=== PATIENT | male | born 1930 | race Caucasian/White ===

== ENCOUNTER → 2016-04-29 | Outpatient (CLI) | payer MEDICARE | LOC: MW.CHFP 08:40 | PROVIDERS: ATTEND Emergency Medicine | DX: Z51.81 Encounter for therapeutic drug level monitoring (principal); Z79.01 Long term (current) use of anticoagulants | CPT/HCPCS: 36415; 85610; G0463 ==

== ENCOUNTER → 2016-05-19 | Outpatient (CLI) | payer MEDICARE | LOC: MW.CHFP 13:32 | PROVIDERS: ATTEND Emergency Medicine | DX: I10 Essential (primary) hypertension (principal); Z53.9 Procedure and treatment not carried out, unspecified reason ==

== ENCOUNTER → 2016-05-27 | Outpatient (CLI) | payer MEDICARE | LOC: MW.CHFP 15:01 | PROVIDERS: ATTEND Emergency Medicine | DX: I10 Essential (primary) hypertension (principal); E78.00 Pure hypercholesterolemia, unspecified; I48.91 Unspecified atrial fibrillation; F01.50 Vascular dementia, unspecified severity, without behavioral disturbance, psychotic disturbance, mood disturbance, and anxiety; G47.34 Idiopathic sleep related nonobstructive alveolar hypoventilation | CPT/HCPCS: 36415; 80053; 85025; G0463 ==

== ENCOUNTER 2016-07-27 20:23 | Emergency (ER) | payer MEDICARE ==
[2016-07-27] MEDS ORDERED: Albuterol/Ipratropium 3.0-0.5 MG/3 ML Neb Soln ONE (20:26)
[2016-07-27] MEDS ORDERED: Albuterol/Ipratropium 3.0-0.5 MG/3 ML Neb Soln NEB ONE (20:36)
[2016-07-27] MEDS ORDERED: methylPREDNISolone Sodium Succinate 125 MG/2 ML SDV IVPUSH ONE (20:41)
--- NOTE | 2016-07-27 22:54 | EDM.PDOC ---
ED HPI GENERAL MEDICAL PROBLEM - General Chief Complaint: Respiratory Problem Stated Complaint: SHORTNESS OF BREATH Time Seen by Provider: 07/27/16 20:35 Source of Information: Reports: Patient History Limitations: Reports: No Limitations - History of Present Illness INITIAL COMMENTS - FREE TEXT/NARRATIVE: History of present illness: [86-year-old male comes in planning of shortness of breath. Daughter and are present indicate patient prefers minimal intervention but is willing to take a breathing treatment] Review of systems: As per history of present illness and below otherwise all systems reviewed and negative. Past medical history: As per history of present illness and as reviewed below otherwise noncontributory. Surgical history: As per history of present illness and as reviewed below otherwise noncontributory. Social history: No reported history of drug or alcohol abuse. Family history: As per history of present illness and as reviewed below otherwise noncontributory. Physical exam: HEENT: Atraumatic, normocephalic, pupils reactive, negative for conjunctival pallor or scleral icterus, mucous membranes moist, throat clear, neck supple, nontender, trachea midline. Lungs: Minimal air movement noted throughout, breath sounds and apex noted to be slightly rhonchorous, chest nontender. Heart: S1S2, regular, negative for clicks, rubs, or JVD. Abdomen: Soft, nondistended, nontender. Negative for masses or hepatosplenomegaly. Negative for costovertebral tenderness. Pelvis: Stable nontender. Genitourinary: Deferred. Rectal: Deferred. Extremities: Atraumatic, negative for cords or calf pain. Neurovascular unremarkable. Neuro: Awake, alert, oriented. Cranial nerves II through XII unremarkable. Cerebellum unremarkable. Motor and sensory unremarkable throughout. Exam nonfocal. 86-year-old gentleman noted to be cachectic and within skin and exhibiting some amount of respiratory distress Breath sounds improved significantly after respiratory treatment and Solu- Medrol IV push An incidental finding was a thickening of the trachea that was present on a radiographic study in February. It is noted that the thickening and or potential mass has increased in size. This was mentioned to the patient and patient's family and they indicated that they would followup with her primary care to have this discussion about plan of care and/or any interventions that would be available to address this concern. Daughter and patient made it very clear patient had no interest in staying in the hospital and desired to go home. Diagnostics: [EC, CMP, BNP, chest x-ray] Therapeutics: [] Impression: [Sore is a breath] Plan: [Followup with primary care] Definitive disposition and diagnosis as appropriate pending reevaluation and review of above. - Related Data Allergies Allergy/AdvReac Type Severity Reaction Status Date / Time No Known Allergies Allergy Verified 04/19/16 11:55 Home Meds: Home Meds Sertraline [Zoloft] 50 mg PO DAILY 03/19/14 [History] Simvastatin [Zocor] 20 mg PO MOWEFR@2100 03/19/14 [History] ClonazePAM [KlonoPIN] 0.25 mg PO BEDTIME 11/04/15 [History] Albuterol/Ipratropium [DuoNeb 3.0-0.5 MG/3 ML] 3 ml IH QID 04/19/16 [History] Donepezil HCl [Aricept] 10 mg PO QPM 04/19/16 [History] Donepezil HCl [Aricept] 15 mg PO QAM 04/19/16 [History] Fluticasone/Vilanterol [Breo Ellipta 100-25 MCG Inhalation Kit] 1 inh INH DAILY 04/19/16 [History] Metoprolol Tartrate 25 mg PO BID 04/19/16 [History] Apixaban [Eliquis] 5 mg PO BID 07/27/16 [History] Memantine HCl [Namenda] 5 mg PO BID 07/27/16 [History] Past Medical History HEENT History: Reports: Macular Degeneration, Other (See Below) Other HEENT History: legally blind Cardiovascular History: Reports: Arrhythmia, Hypertension, Pacemaker Other Cardiovascular History: Pacemaker placed approximately 6 years ago. Respiratory History: Reports: COPD Musculoskeletal History: Reports: Arthritis, Gout Neurological History: Reports: Other (See Below) Other Neuro History: myoclonis Hematologic History: Reports: Anticoagulation Therapy, Blood Transfusion(s) - Infectious Disease History Infectious Disease History: Reports: C-Difficile Other Infectious Disease History: X 3 years ago-C-Diff - Past Surgical History HEENT Surgical History: Reports: Cataract Surgery Dermatological Surgical History: Reports: None Social & Family History - Family History Family Medical History: Noncontributory Oncologic: Reports: Bladder, Lung - Tobacco Use Smoking Status *Q: Current Some Day Smoker Years of Tobacco use: 60 Packs/Tins Daily: 0.1 Used Tobacco, but Quit: No Month Tobacco Last Used: october Second Hand Smoke Exposure: Yes - Caffeine Use Caffeine Use: Reports: Coffee - Alcohol Use Days Per Week of Alcohol Use: 0 - Recreational Drug Use Recreational Drug Use: No ED ROS GENERAL - Review of Systems Review Of Systems: See Below (History of present illness) ED EXAM, GENERAL - Physical Exam Exam: See Below (See history of present illness) Course - Vital Signs Last Recorded V/S: Last Vital Signs Temp 36.6 C 07/27/16 21:30 Pulse 67 07/27/16 21:30 Resp 20 07/27/16 21:30 BP 160/79 H 07/27/16 21:30 Pulse Ox 97 07/27/16 21:30 - Orders/Labs/Meds Orders: Active Orders 24 hr Category Date Time Status EKG 12 Lead [EKG Documentation Completion] [RC] STAT Care 07/27/16 20:37 Active RT Aerosol Therapy [RC] ASDIRECTED Care 07/27/16 20:36 Active Chest 1V Frontal [CR] Stat Exams 07/27/16 20:36 Taken Labs: Laboratory Tests 07/27/16 07/27/16 07/27/16 Range/Units 20:30 20:30 20:30 WBC 10.51 (4.0-11.0) K/uL RBC 4.75 (4.50-5.90) M/uL Hgb 15.7 (13.0-17.0) g/dL Hct 45.5 (38.0-50.0) % MCV 95.8 (80.0-98.0) fL MCH 33.1 H (27.0-32.0) pg MCHC 34.5 (31.0-37.0) g/dL RDW Std Deviation 47.6 (28.0-62.0) fl RDW Coeff of Davonte 14 (11.0-15.0) % Plt Count 201 (150-400) K/uL MPV 9.80 (7.40-12.00) fL Neut % (Auto) 54.7 (48.0-80.0) % Lymph % (Auto) 28.4 (16.0-40.0) % Cook % (Auto) 9.4 (0.0-15.0) % Eos % (Auto) 7.0 (0.0-7.0) % Baso % (Auto) 0.5 (0.0-1.5) % Neut # (Auto) 5.7 (1.4-5.7) K/uL Lymph # (Auto) 3.0 H (0.6-2.4) K/uL Cook # (Auto) 1.0 H (0.0-0.8) K/uL Eos # (Auto) 0.7 (0.0-0.7) K/uL Baso # (Auto) 0.1 (0.0-0.1) K/uL Nucleated RBC % 0.0 /100WBC Nucleated RBCs # 0 K/uL INR (0.86-1.11) Sodium 143 (136-146) mmol/L Potassium 4.2 (3.5-5.1) mmol/L Chloride 111 H (98-110) mmol/L Carbon Dioxide 20 L (21-31) mmol/L BUN 18 (6.0-23.0) mg/dL Creatinine 1.3 (0.6-1.5) mg/dL Est Cr Clr Drug Dosing 32.57 mL/min Estimated GFR (MDRD) 52.6 ml/min Glucose 114 H (60-110) mg/dL Calcium 8.8 (8.8-10.8) mg/dL Total Bilirubin 0.4 (0.1-1.5) mg/dL AST 17 (5-40) IU/L ALT 12 (8-54) IU/L Alkaline Phosphatase 94 (40-150) Troponin I < 0.10 (0.0-0.29) NG/ML B-Natriuretic Peptide (<100) PG/ML Total Protein 7.7 (6.0-8.0) g/dL Albumin 3.7 (3.4-4.8) g/dL Globulin 4.0 H (2.0-3.5) g/dL Albumin/Globulin Ratio 0.9 L (1.3-2.8) 07/27/16 07/27/16 Range/Units 20:30 20:50 WBC (4.0-11.0) K/uL RBC (4.50-5.90) M/uL Hgb (13.0-17.0) g/dL Hct (38.0-50.0) % MCV (80.0-98.0) fL MCH (27.0-32.0) pg MCHC (31.0-37.0) g/dL RDW Std Deviation (28.0-62.0) fl RDW Coeff of Davonte (11.0-15.0) % Plt Count (150-400) K/uL MPV (7.40-12.00) fL Neut % (Auto) (48.0-80.0) % Lymph % (Auto) (16.0-40.0) % Cook % (Auto) (0.0-15.0) % Eos % (Auto) (0.0-7.0) % Baso % (Auto) (0.0-1.5) % Neut # (Auto) (1.4-5.7) K/uL Lymph # (Auto) (0.6-2.4) K/uL Cook # (Auto) (0.0-0.8) K/uL Eos # (Auto) (0.0-0.7) K/uL Baso # (Auto) (0.0-0.1) K/uL Nucleated RBC % /100WBC Nucleated RBCs # K/uL INR 1.06 (0.86-1.11) Sodium (136-146) mmol/L Potassium (3.5-5.1) mmol/L Chloride (98-110) mmol/L Carbon Dioxide (21-31) mmol/L BUN (6.0-23.0) mg/dL Creatinine (0.6-1.5) mg/dL Est Cr Clr Drug Dosing mL/min Estimated GFR (MDRD) ml/min Glucose (60-110) mg/dL Calcium (8.8-10.8) mg/dL Total Bilirubin (0.1-1.5) mg/dL AST (5-40) IU/L ALT (8-54) IU/L Alkaline Phosphatase (40-150) Troponin I (0.0-0.29) NG/ML B-Natriuretic Peptide 273 H (<100) PG/ML Total Protein (6.0-8.0) g/dL Albumin (3.4-4.8) g/dL Globulin (2.0-3.5) g/dL Albumin/Globulin Ratio (1.3-2.8) Meds: Medications Discontinued Medications Generic Name Dose Route Start Last Admin Trade Name Boby PRN Reason Stop Dose Admin Albuterol/Ipratropium Confirm 07/27/16 20:26 07/27/16 20:37 Duoneb 3.0-0.5 Mg/3 Ml Administered 07/27/16 20:27 3 ml Dose Administration 3 ml .ROUTE .STK-MED ONE Albuterol/Ipratropium 3 ml 07/27/16 20:36 07/27/16 20:37 Duoneb 3.0-0.5 Mg/3 Ml NEB 07/27/16 20:37 Not Given ONETIME ONE Methylprednisolone Sodium Succinate 125 mg 07/27/16 20:41 07/27/16 20:47 Solu-Medrol IVPUSH 07/27/16 20:42 125 mg ONETIME ONE Administration Departure - Departure Time of Disposition: 22:53 Disposition: Home, Self-Care 01 Condition: good Clinical Impression: Respiratory distress - Discharge Information Instructions: Shortness of Breath, [id number] Forms: ED Department Discharge Additional Instructions: The following information is given to patients seen in the emergency department who are being discharged to home. This information is to outline your options for follow-up care. We provide all patients seen in our emergency department with a follow-up referral. The need for follow-up, as well as the timing and circumstances, are variable depending upon the specifics of your emergency department visit. If you don't have a primary care physician on staff, we will provide you with a referral. We always advise you to contact your personal physician following an emergency department visit to inform them of the circumstance of the visit and for follow-up with them and/or the need for any referrals to a consulting specialist. The emergency department will also refer you to a specialist when appropriate. This referral assures that you have the opportunity for follow-up care with a specialist. All of these measure are taken in an effort to provide you with optimal care, which includes your follow-up. Under all circumstances we always encourage you to contact your private physician who remains a resource for coordinating your care. When calling for follow-up care, please make the office aware that this follow-up is from your recent emergency room visit. If for any reason you are refused follow-up, please contact the [facility] Emergency Department at and asked to speak to the emergency department charge nurse. Followup with your primary care provider as discussed in one to 2 day Return to ED as needed as discussed
[2016-07-27 23:13] VITALS: BP 160/75
--- NOTE | 2016-07-28 10:18 | CR ---
EXAM DATE: 07/27/16 PATIENT'S AGE: 86 Patient: CHAVA LANDRY Facility: [place], [place] Site . Site : [id number] Study: XRay Chest [id number]/30/2017 9:41:37 PM Ordering Physician: Doctor Martin Final Report: INDICATION: Shortness of breath TECHNIQUE: Chest radiograph 1 view COMPARISON: 03/02/2016. FINDINGS: Left subclavian pacemaker leads intact and unchanged in position. Lungs are clear. Increased paratracheal density. Heart size and perihilar contours unchanged. No pneumothorax or blunting of costophrenic sulci. IMPRESSION: 1. Increased right paratracheal density from 03/02/2016 with otherwise stable findings. No focal pneumonia or CHF pattern. Recommend further evaluation with contrast enhanced chest CT to evaluate right paratracheal region and exclude underlying mass or lymphadenopathy. Dictated by Humble Ryder MD @ 07/27/2016 10:17:06 PM Dictated by: Humble Ryder MD @ 07/27/2016 22:17:27 ----- ADDENDUM ----- ADDENDUM: Faxed report confirmed receipt with NORIS Dow on 07/27/2016 at 10:23pm [employer]. Dictated by Humble Ryder MD @ Jul 27 2016 10:28PM (Electronic Signature) Report Signed by Proxy. IRIS
== END 2016-07-27 23:00 | disposition home or self-care (01) ==
LOC: MW.ED 20:23
DX: R06.00 Dyspnea, unspecified (principal); I10 Essential (primary) hypertension; J44.9 Chronic obstructive pulmonary disease, unspecified; F17.210 Nicotine dependence, cigarettes, uncomplicated; Z95.0 Presence of cardiac pacemaker; Z98.49 Cataract extraction status, unspecified eye; Z79.899 Other long term (current) drug therapy
CPT/HCPCS: 36415; 71010; 80053; 83880; 84484; 85025; 85610; 93005; 94664; 96374; 99285; J2930; 99284

== ENCOUNTER 2016-08-29 15:04 | Inpatient (IN) | payer MEDICARE ==
--- NOTE | 2016-08-29 15:34 | EDM.PDOC ---
ED HPI GENERAL MEDICAL PROBLEM - General Chief Complaint: General Stated Complaint: HICCUPS Time Seen by Provider: 08/29/16 15:07 - History of Present Illness INITIAL COMMENTS - FREE TEXT/NARRATIVE: HISTORY AND PHYSICAL: History of present illness: Patient is an 86-year-old white male then extensive past medical history presents with a concern of intermittent headache of similar pink-white persistent over the last 2-3 days there's been no vomiting no diarrhea no other complaints this has resolved since arrival here. Review of systems: As per history of present illness and below otherwise all systems reviewed and negative. Past medical history: As per history of present illness and as reviewed below otherwise noncontributory. Surgical history: As per history of present illness and as reviewed below otherwise noncontributory. Social history: No reported history of drug or alcohol abuse. Family history: As per history of present illness and as reviewed below otherwise noncontributory. Physical exam: HEENT: Atraumatic, normocephalic, pupils reactive, negative for conjunctival pallor or scleral icterus, mucous membranes moist, throat clear, neck supple, nontender, trachea midline. Lungs: Coarse bilateral diminished, breath sounds equal bilaterally, chest nontender. Heart: S1S2, regular, negative for clicks, rubs, or JVD. Abdomen: Soft, nondistended, nontender. Negative for masses or hepatosplenomegaly. Negative for costovertebral tenderness. Pelvis: Stable nontender. Genitourinary: Deferred. Rectal: Deferred. Extremities: Atraumatic, negative for cords or calf pain. Neurovascular unremarkable. Neuro: Awake, alert, follows commands and moves all extremities at his baseline per family Limited but grossly nonfocal exam Diagnostics: CBC CMP EKG troponin UA chest x-ray Therapeutics: None Impression: #1 intermittent hiccups etiology be determined Definitive disposition and diagnosis as appropriate pending reevaluation and review of above. - Related Data Allergies Allergy/AdvReac Type Severity Reaction Status Date / Time No Known Allergies Allergy Verified 08/29/16 15:14 Home Meds: Home Meds Sertraline [Zoloft] 50 mg PO DAILY 03/19/14 [History] Simvastatin [Zocor] 20 mg PO MOWEFR@2100 03/19/14 [History] ClonazePAM [KlonoPIN] 0.5 mg PO BEDTIME 11/04/15 [History] Albuterol/Ipratropium [DuoNeb 3.0-0.5 MG/3 ML] 3 ml IH QID PRN 04/19/16 [History ] Donepezil HCl [Aricept] 10 mg PO QPM 04/19/16 [History] Donepezil HCl [Aricept] 15 mg PO QAM 04/19/16 [History] Metoprolol Tartrate 25 mg PO BID 04/19/16 [History] Apixaban [Eliquis] 5 mg PO BID 07/27/16 [History] Budesonide 1 mg IH DAILY 08/29/16 [History] Past Medical History HEENT History: Reports: Hard of Hearing, Macular Degeneration, Other (See Below) Other HEENT History: legally blind Cardiovascular History: Reports: Arrhythmia, Hypertension, Pacemaker Other Cardiovascular History: Pacemaker placed 6 years ago. Respiratory History: Reports: COPD Other Respiratory History: on home oxygen at 2-3 liters per minute via nasal cannula during the night Musculoskeletal History: Reports: Arthritis, Gout Neurological History: Reports: Other (See Below) Other Neuro History: myoclonis Hematologic History: Reports: Anticoagulation Therapy, Blood Transfusion(s) - Infectious Disease History Infectious Disease History: Reports: C-Difficile Other Infectious Disease History: X 3 years ago-C-Diff - Past Surgical History HEENT Surgical History: Reports: Cataract Surgery Other Cardiovascular Surgeries/Procedures: vocal cord surgery Social & Family History - Family History Family Medical History: Noncontributory Oncologic: Reports: Bladder, Lung - Tobacco Use Smoking Status *Q: Former Smoker Years of Tobacco use: 60 Packs/Tins Daily: 0.1 Used Tobacco, but Quit: Yes Month Tobacco Last Used: 4 months ago Second Hand Smoke Exposure: Yes - Caffeine Use Caffeine Use: Reports: Coffee Caffeine Use Comment: 1-2cups/day - Alcohol Use Days Per Week of Alcohol Use: 0 - Recreational Drug Use Recreational Drug Use: No ED ROS GENERAL - Review of Systems Review Of Systems: ROS reveals no pertinent complaints other than HPI. ED EXAM, GENERAL - Physical Exam Exam: See Below (See dictation) Course - Vital Signs Last Recorded V/S: Last Vital Signs Temp 36.6 C 08/29/16 16:15 Pulse 65 08/29/16 16:15 Resp 16 08/29/16 16:15 BP 153/68 H 08/29/16 16:15 Pulse Ox 97 07/02/17 16:15 - Orders/Labs/Meds Orders: Active Orders 24 hr Category Date Time Status EKG 12 Lead [EKG Documentation Completion] [RC] STAT Care 08/29/16 15:18 Active Chest 2V [CR] Stat Exams 08/29/16 15:12 Taken CULTURE BLOOD [BC] Stat Lab 08/29/16 17:15 Ordered CULTURE BLOOD [BC] Stat Lab 08/29/16 17:16 Ordered LACTIC ACID,WHOLE BLOOD [BG] Stat Lab 08/29/16 15:20 Received Levofloxacin/Dextrose 5%-Water [Levaquin in D5W 750 MG/ Med 08/29/16 17:16 Active 150 ML] 750 mg Premix Bag 1 bag IV ONETIME Medication Orders Levofloxacin/Dextrose 750 mg/ (Premix) 150 mls @ 100 mls/hr IV ONETIME ONE Stop: 08/29/16 18:45 Labs: Laboratory Tests 08/29/16 08/29/16 08/29/16 Range/Units 15:20 15:20 15:20 WBC 10.62 (4.0-11.0) K/uL RBC 4.15 L (4.50-5.90) M/uL Hgb 13.5 (13.0-17.0) g/dL Hct 39.5 (38.0-50.0) % MCV 95.2 (80.0-98.0) fL MCH 32.5 H (27.0-32.0) pg MCHC 34.2 (31.0-37.0) g/dL RDW Std Deviation 46.7 (28.0-62.0) fl RDW Coeff of Davonte 13 (11.0-15.0) % Plt Count 306 (150-400) K/uL MPV 9.30 (7.40-12.00) fL Neut % (Auto) 64.2 (48.0-80.0) % Lymph % (Auto) 21.8 (16.0-40.0) % [place]ard % (Auto) 11.5 (0.0-15.0) % Eos % (Auto) 2.0 (0.0-7.0) % Baso % (Auto) 0.5 (0.0-1.5) % Neut # (Auto) 6.8 H (1.4-5.7) K/uL Lymph # (Auto) 2.3 (0.6-2.4) K/uL [place]ard # (Auto) 1.2 H (0.0-0.8) K/uL Eos # (Auto) 0.2 (0.0-0.7) K/uL Baso # (Auto) 0.1 (0.0-0.1) K/uL Nucleated RBC % 0.0 /100WBC Nucleated RBCs # 0 K/uL INR 1.12 H (0.86-1.11) Sodium 139 (136-146) mmol/L Potassium 3.9 (3.5-5.1) mmol/L Chloride 108 (98-110) mmol/L Carbon Dioxide 20 L (21-31) mmol/L BUN 18 (6.0-23.0) mg/dL Creatinine 1.2 (0.6-1.5) mg/dL Est Cr Clr Drug Dosing 36.75 mL/min Estimated GFR (MDRD) 57.7 ml/min Glucose 103 (60-110) mg/dL Calcium 8.9 (8.8-10.8) mg/dL Total Bilirubin 0.5 (0.1-1.5) mg/dL AST 28 (5-40) IU/L ALT 29 (8-54) IU/L Alkaline Phosphatase 84 (40-150) Troponin I (0.0-0.29) NG/ML Total Protein 7.0 (6.0-8.0) g/dL Albumin 3.1 L (3.4-4.8) g/dL Globulin 3.9 H (2.0-3.5) g/dL Albumin/Globulin Ratio 0.8 L (1.3-2.8) Urine Color Urine Appearance Urine pH (5.0-8.0) Ur Specific [place] (1.001-1.035) Urine Protein (NEGATIVE) mg/dL Urine Glucose (UA) (NEGATIVE) mg/dL Urine Ketones (NEGATIVE) mg/dL Urine Occult Blood (NEGATIVE) Urine Nitrite (NEGATIVE) Urine Bilirubin (NEGATIVE) Urine Urobilinogen (<2.0) EU/dL Ur Leukocyte Esterase (NEGATIVE) Urine RBC (0-2/HPF) Urine WBC (0-5/HPF) Ur Epithelial Cells (NONE-FEW) Urine Bacteria (NEGATIVE) 08/29/16 08/29/16 Range/Units 15:20 16:17 WBC (4.0-11.0) K/uL RBC (4.50-5.90) M/uL Hgb (13.0-17.0) g/dL Hct (38.0-50.0) % MCV (80.0-98.0) fL MCH (27.0-32.0) pg MCHC (31.0-37.0) g/dL RDW Std Deviation (28.0-62.0) fl RDW Coeff of Davonte (11.0-15.0) % Plt Count (150-400) K/uL MPV (7.40-12.00) fL Neut % (Auto) (48.0-80.0) % Lymph % (Auto) (16.0-40.0) % [place]ard % (Auto) (0.0-15.0) % Eos % (Auto) (0.0-7.0) % Baso % (Auto) (0.0-1.5) % Neut # (Auto) (1.4-5.7) K/uL Lymph # (Auto) (0.6-2.4) K/uL [place]ard # (Auto) (0.0-0.8) K/uL Eos # (Auto) (0.0-0.7) K/uL Baso # (Auto) (0.0-0.1) K/uL Nucleated RBC % /100WBC Nucleated RBCs # K/uL INR (0.86-1.11) Sodium (136-146) mmol/L Potassium (3.5-5.1) mmol/L Chloride (98-110) mmol/L Carbon Dioxide (21-31) mmol/L BUN (6.0-23.0) mg/dL Creatinine (0.6-1.5) mg/dL Est Cr Clr Drug Dosing mL/min Estimated GFR (MDRD) ml/min Glucose (60-110) mg/dL Calcium (8.8-10.8) mg/dL Total Bilirubin (0.1-1.5) mg/dL AST (5-40) IU/L ALT (8-54) IU/L Alkaline Phosphatase (40-150) Troponin I < 0.10 (0.0-0.29) NG/ML Total Protein (6.0-8.0) g/dL Albumin (3.4-4.8) g/dL Globulin (2.0-3.5) g/dL Albumin/Globulin Ratio (1.3-2.8) Urine Color YELLOW Urine Appearance CLEAR Urine pH 5.0 (5.0-8.0) Ur Specific [place] 1.025 (1.001-1.035) Urine Protein NEGATIVE (NEGATIVE) mg/dL Urine Glucose (UA) NEGATIVE (NEGATIVE) mg/dL Urine Ketones NEGATIVE (NEGATIVE) mg/dL Urine Occult Blood SMALL H (NEGATIVE) Urine Nitrite NEGATIVE (NEGATIVE) Urine Bilirubin NEGATIVE (NEGATIVE) Urine Urobilinogen 0.2 (<2.0) EU/dL Ur Leukocyte Esterase NEGATIVE (NEGATIVE) Urine RBC 0-2 (0-2/HPF) Urine WBC 0-1 (0-5/HPF) Ur Epithelial Cells RARE (NONE-FEW) Urine Bacteria FEW (NEGATIVE) Meds: Medications Generic Name Dose Route Start Last Admin Trade Name Freq PRN Reason Stop Dose Admin Levofloxacin/Dextrose 750 mg/ 150 mls @ 100 mls/hr 08/29/16 17:16 Premix IV 08/29/16 18:45 ONETIME ONE Discontinued Medications Generic Name Dose Route Start Last Admin Trade Name Freq PRN Reason Stop Dose Admin Chlorpromazine HCl 25 mg 08/29/16 15:56 08/29/16 16:32 Thorazine IM 08/29/16 15:57 25 mg ONETIME ONE Administration Departure - Departure Time of Disposition: 15:34 Disposition: Refer to Observation Condition: Good Clinical Impression: Hiccups, COPD (chronic obstructive pulmonary disease), Pneumonia - Discharge Information Referrals: Rosendo Braxton MD [Primary Care Provider] - Forms: ED Department Discharge - My Orders Last 24 Hours: My Active Orders 08/29/16 15:12 Chest 2V [CR] Stat 08/29/16 15:18 EKG 12 Lead [EKG Documentation Completion] [RC] STAT 08/29/16 15:20 LACTIC ACID,WHOLE BLOOD [BG] Stat 08/29/16 17:15 CULTURE BLOOD [BC] Stat 08/29/16 17:16 CULTURE BLOOD [BC] Stat Levofloxacin/Dextrose 5%-Water [Levaquin in D5W 750 MG/150 ML] 750 mg Premix Bag 1 bag IV ONETIME - Assessment/Plan Last 24 Hours: My Active Orders 08/29/16 15:12 Chest 2V [CR] Stat 08/29/16 15:18 EKG 12 Lead [EKG Documentation Completion] [RC] STAT 08/29/16 15:20 LACTIC ACID,WHOLE BLOOD [BG] Stat 08/29/16 17:15 CULTURE BLOOD [BC] Stat 08/29/16 17:16 CULTURE BLOOD [BC] Stat Levofloxacin/Dextrose 5%-Water [Levaquin in D5W 750 MG/150 ML] 750 mg Premix Bag 1 bag IV ONETIME
[2016-08-29] MEDS ORDERED: chlorproMAZINE 50 MG/2 ML Amp IM ONE (15:56)
[2016-08-29] MEDS ORDERED: Levofloxacin/Dextrose 5%-Water 750 MG in Premix Bag 1 BAG IV ONE (17:16)
[2016-08-29] MEDS ORDERED: Metoclopramide 10 MG Tab PO PRN (18:13)
[2016-08-29] MEDS ORDERED: chlorproMAZINE 50 MG/2 ML Amp IM PRN (18:13)
[2016-08-29] MEDS ORDERED: Ondansetron 4 MG/2 ML SDV IVPUSH PRN (19:10)
--- NOTE | 2016-08-29 19:15 | PCM.HP ---
H&P History of Present Illness - History of Present Illness Initial Comments - Free Text/Narative: 86 yo male with pmh of hypertension, myoclonus, and atrial fibrilation on anticoagulation who presents with intractable hiccups. He has had hiccups for the past four days. He denies any cough, shortness of breath, or fevers. In the ED he was evaluated with CXR which reported right upper lobe density. - Related Data Allergies/Adverse Reactions: Allergies Allergy/AdvReac Type Severity Reaction Status Date / Time No Known Allergies Allergy Verified 08/29/16 15:14 Home Medications: Home Meds Sertraline [Zoloft] 50 mg PO DAILY 03/19/14 [History] Simvastatin [Zocor] 20 mg PO MOWEFR@2100 03/19/14 [History] ClonazePAM [KlonoPIN] 0.5 mg PO BEDTIME 11/04/15 [History] Albuterol/Ipratropium [DuoNeb 3.0-0.5 MG/3 ML] 3 ml IH QID PRN 04/19/16 [History ] Donepezil HCl [Aricept] 10 mg PO QPM 04/19/16 [History] Donepezil HCl [Aricept] 15 mg PO QAM 04/19/16 [History] Metoprolol Tartrate 25 mg PO BID 04/19/16 [History] Apixaban [Eliquis] 5 mg PO BID 07/27/16 [History] Budesonide 1 mg IH DAILY 08/29/16 [History] Baclofen [Lioresal] 5 mg PO TID PRN #30 tablet 08/30/16 [Rx] Metoclopramide [Reglan] 5 mg PO Q6H PRN #30 tablet 08/30/16 [Rx] Morphine 15 mg PO Q4H #30 tablet 08/30/16 [Rx] Past Medical History HEENT History: Reports: Hard of Hearing, Macular Degeneration, Other (See Below) Other HEENT History: legally blind Cardiovascular History: Reports: Arrhythmia, Hypertension, Pacemaker Other Cardiovascular History: Pacemaker placed 6 years ago. Respiratory History: Reports: COPD Other Respiratory History: on home oxygen at 2-3 liters per minute via nasal cannula during the night Musculoskeletal History: Reports: Arthritis, Gout Neurological History: Reports: Other (See Below) Other Neuro History: myoclonis Hematologic History: Reports: Anticoagulation Therapy, Blood Transfusion(s) - Infectious Disease History Infectious Disease History: Reports: C-Difficile Other Infectious Disease History: X 3 years ago-C-Diff - Past Surgical History HEENT Surgical History: Reports: Cataract Surgery Other Cardiovascular Surgeries/Procedures: vocal cord surgery Social & Family History - Family History Family Medical History: Noncontributory Oncologic: Reports: Bladder, Lung - Tobacco Use Smoking Status *Q: Former Smoker Years of Tobacco use: 60 Packs/Tins Daily: 0.1 Used Tobacco, but Quit: Yes Month Tobacco Last Used: 4 Second Hand Smoke Exposure: No - Caffeine Use Caffeine Use: Reports: Coffee Caffeine Use Comment: 1-2cups/day - Alcohol Use Days Per Week of Alcohol Use: 0 - Recreational Drug Use Recreational Drug Use: No H&P Review of Systems - Review of Systems: Review Of Systems: ROS reveals no pertinent complaints other than HPI. Exam - Exam Exam: See Below - Vital Signs Vital Signs: Last Vital Signs Temp 36.4 C 08/29/16 18:00 Pulse 57 L 08/29/16 18:00 Resp 20 08/29/16 18:00 BP 155/73 H 08/29/16 18:00 Pulse Ox 96 08/29/16 18:00 Weight: 56.699 kg - Exam General: Alert, Other (cachectic). No: Mild Distress Neck: Supple, Trachea Midline, 2 Lungs: Clear to Auscultation, Normal Respiratory Effort Cardiovascular: Regular Rate, Regular Rhythm Abdomen: Normal Bowel Sounds, Soft Extremities: No: Edema Skin: Warm, Dry, Intact - Patient Data Result Diagrams: 08/29/16 15:20 08/29/16 15:20 *Q Meaningful Use (ADM) - VTE *Q VTE Criteria *Q: - Stroke *Q Stroke Criteria *Q: - AMI *Q AMI Criteria *Q: Problem List Initiated/Reviewed/Updated: Yes Orders Last 24hrs: Active Orders 24 hr Category Date Time Status Chest w Cont [CT] Routine Exams 08/29/16 19:07 Ordered Albuterol/Ipratropium [DuoNeb 3.0-0.5 MG/3 ML] Med 08/29/16 19:05 Ordered 3 ml INH QID PRN Apixaban [Eliquis] Med 08/29/16 21:00 Ordered 5 mg PO BID Baclofen [Lioresal] Med 08/29/16 18:15 Active 5 mg PO TID PRN Budesonide [Budesonide] Med 08/30/16 09:00 Ordered 1 mg IH DAILY ClonazePAM [KlonoPIN] Med 08/29/16 21:00 Ordered 0.5 mg PO BEDTIME Donepezil [Aricept] Med 08/30/16 18:00 Ordered 10 mg PO QPM Donepezil [Aricept] Med 08/30/16 09:00 Ordered 15 mg PO QAM Metoclopramide [Reglan] Med 08/29/16 18:13 Active 10 mg PO Q6H PRN Metoprolol Tartrate [Lopressor] Med 08/29/16 21:00 Ordered 25 mg PO BID Sertraline [Zoloft] Med 08/30/16 09:00 Ordered 50 mg PO DAILY Simvastatin [Zocor] Med 08/30/16 21:00 Ordered 20 mg PO MOWEFR@2100 chlorproMAZINE [Thorazine] Med 08/29/16 18:13 Active 12.5 mg IM TID PRN Medication Orders Albuterol/Ipratropium (Duoneb 3.0-0.5 Mg/3 Ml) 3 ml INH QID PRN PRN Reason: breathing Apixaban (Eliquis) 5 mg PO BID [facility] Baclofen (Lioresal) 5 mg PO TID PRN PRN Reason: hiccups Chlorpromazine HCl (Thorazine) 12.5 mg IM TID PRN PRN Reason: Hiccups Clonazepam (Klonopin) 0.5 mg PO BEDTIME A[facility] Donepezil HCl (Aricept) 15 mg PO QAM A[facility] Donepezil HCl (Aricept) 10 mg PO QPM A[facility] Metoclopramide HCl (Reglan) 10 mg PO Q6H PRN PRN Reason: Hiccups Metoprolol Tartrate (Lopressor) 25 mg PO BID A[facility] Non-Formulary Medication (Budesonide [Budesonide]) 1 mg IH DAILY [facility] Sertraline HCl (Zoloft) 50 mg PO DAILY [facility] Simvastatin (Zocor) 20 mg PO MOWEFR@2100 [facility] Assessment/Plan Comment:: 86 yo male admitted with intractable hiccups and right lung density. We will order contrasted CT. Will try reglan and baclofen. Patient and family are not wanting aggressive care if this is cancer. They are considering hospice and [facility] placement for palliative care.
[2016-08-29] MEDS: Apixaban 5 MG Tab PO SCH (20:58)
[2016-08-29] MEDS: Metoprolol Tartrate 25 MG Tab PO SCH (20:59)
[2016-08-29] MEDS ORDERED: ClonazePAM 0.5 MG Tab PO SCH (21:00)
[2016-08-29] MEDS: Baclofen 10 MG Tab PO PRN (21:00)
[2016-08-29] MEDS ORDERED: Donepezil 10 MG Tab PO SCH ×2 (22:01→22:05)
[2016-08-29] MEDS ORDERED: Donepezil 10 MG Tab PO ONE (22:09)
[2016-08-30] MEDS: Albuterol/Ipratropium 3.0-0.5 MG/3 ML Neb Soln INH PRN ×2 (00:18→09:04)
[2016-08-30] MEDS ORDERED: Iopamidol 755 MG/ML 500 ML Multipack Bottle IVPUSH STA (00:23)
[2016-08-30] MEDS: Baclofen 10 MG Tab PO PRN (05:09)
[2016-08-30] MEDS: Apixaban 5 MG Tab PO SCH (08:24)
[2016-08-30] MEDS: Metoprolol Tartrate 25 MG Tab PO SCH (08:24)
[2016-08-30 08:25] VITALS: BP 117/58
[2016-08-30] MEDS ORDERED: Sertraline 50 MG Tab PO SCH (09:00)
[2016-08-30] MEDS ORDERED: BUDESONIDE 1 MG IH SCH (09:00)
[2016-08-30] MEDS ORDERED: Donepezil 10 MG Tab PO SCH ×3 (09:00→18:00)
[2016-08-30] MEDS ORDERED: Metoclopramide 10 MG Tab PO PRN (10:50)
--- NOTE | 2016-08-30 12:48 | PCM.DCSUM1 ---
Addendum entered and electronically signed by Ivory Longoria MD 08/30/16 20:28 : Discharge Summary - Hospital Course Free Text/Narrative:: patient was given hand written script for levaquin 500 mg QD x 4 days. His first set of blood cultures were positive now. I called [place] pharmacy for additional 6 days of levaquin 500 mg po QD. plan discussed with dr. martin. - Discharge Data Discharge Date: 08/30/16 Discharge Disposition: Home, W Home Health Agency 06 Condition: Fair - Patient Summary/Data Consults: Consultations 08/30/16 13:19 Consult to [facility] [CONS] Routine - Patient Instructions Diet: Regular Diet as Tolerated Activity: As Tolerated Driving: Do Not Drive Showering/Bathing: May Shower Notify Provider of: Fever, Increased Pain, Swelling and Redness, Drainage, Nausea and/or Vomiting - Discharge Plan Prescriptions/Med Rec: Baclofen [Lioresal] 5 mg PO TID PRN #30 tablet PRN Reason: Spasms Metoclopramide [Reglan] 5 mg PO Q6H PRN #30 tablet PRN Reason: Nausea/Vomiting Morphine 15 mg PO Q4H #30 tablet Home Medications: Home Meds Sertraline [Zoloft] 50 mg PO DAILY 03/19/14 [History] Simvastatin [Zocor] 20 mg PO MOWEFR@2100 03/19/14 [History] ClonazePAM [KlonoPIN] 0.5 mg PO BEDTIME 11/04/15 [History] Albuterol/Ipratropium [DuoNeb 3.0-0.5 MG/3 ML] 3 ml IH QID PRN 04/19/16 [History ] Donepezil HCl [Aricept] 10 mg PO QPM 04/19/16 [History] Donepezil HCl [Aricept] 15 mg PO QAM 04/19/16 [History] Metoprolol Tartrate 25 mg PO BID 04/19/16 [History] Apixaban [Eliquis] 5 mg PO BID 07/27/16 [History] Budesonide 1 mg IH DAILY 08/29/16 [History] Baclofen [Lioresal] 5 mg PO TID PRN #30 tablet 08/30/16 [Rx] Metoclopramide [Reglan] 5 mg PO Q6H PRN #30 tablet 08/30/16 [Rx] Morphine 15 mg PO Q4H #30 tablet 08/30/16 [Rx] Patient Handouts: Metoclopramide tablets, Morphine sustained-release tablets, Hiccups, Baclofen tablets, Levofloxacin tablets Referrals: Rosendo Braxton MD [Primary Care Provider] - 09/07/16 2:30 pm - Patient Data Vitals - Most Recent: Last Vital Signs Temp 98.4 F 08/30/16 08:00 Pulse 65 08/30/16 08:24 Resp 20 08/30/16 08:00 BP 117/58 L 08/30/16 08:24 Pulse Ox 97 08/30/16 08:00 Weight - Most Recent: 56.699 kg I&O - Last 24 hours: Intake & Output 08/30/16 08/30/16 08/30/16 06:59 14:59 22:59 Intake Total 250 500 Output Total 300 Balance 250 200 Med Orders - Current: Current Medications Discontinued Medications Albuterol/Ipratropium (Duoneb 3.0-0.5 Mg/3 Ml) 3 ml INH QID PRN PRN Reason: breathing Last Admin: 08/30/16 09:04 Dose: 3 ml Apixaban (Eliquis) 5 mg PO BID A[facility]UTOSH Last Admin: 08/30/16 08:24 Dose: 5 mg Baclofen (Lioresal) 5 mg PO TID PRN PRN Reason: hiccups Last Admin: 08/30/16 05:09 Dose: 5 mg Chlorpromazine HCl (Thorazine) 25 mg IM ONETIME ONE Stop: 08/29/16 15:57 Last Admin: 08/29/16 16:32 Dose: 25 mg Chlorpromazine HCl (Thorazine) 12.5 mg IM TID PRN PRN Reason: Hiccups Clonazepam (Klonopin) 0.5 mg PO BEDTIME A[facility]UTOSH Last Admin: 08/29/16 20:58 Dose: 0.5 mg Donepezil HCl (Aricept) 15 mg PO QAM [facility] Donepezil HCl (Aricept) 10 mg PO QPM A[facility] Donepezil HCl (Aricept) 15 mg PO QAM A[facility]OSH Last Admin: 08/29/16 22:06 Dose: Not Given Donepezil HCl (Aricept) 15 mg PO QAM A[facility]OS[facility] Last Admin: 08/30/16 08:25 Dose: 15 mg Donepezil HCl (Aricept) 10 mg PO QPM A[facility] Donepezil HCl (Aricept) 10 mg PO ONETIME ONE Stop: 08/30/16 22:10 Donepezil HCl (Aricept) 10 mg PO ONETIME ONE Stop: 08/29/16 22:10 Last Admin: 08/29/16 22:42 Dose: 10 mg Levofloxacin/Dextrose 750 mg/ (Premix) 150 mls @ 100 mls/hr IV ONETIME ONE Stop: 08/29/16 18:45 Last Admin: 08/29/16 17:36 Dose: 100 mls/hr Iopamidol (Isovue Multipack-370 (76%)) 70 ml IVPUSH ONETIME STA Stop: 08/30/16 00:24 Last Admin: 08/30/16 00:24 Dose: 70 ml Metoclopramide HCl (Reglan) 10 mg PO Q6H PRN PRN Reason: Hiccups Last Admin: 08/30/16 01:57 Dose: 10 mg Metoclopramide HCl (Reglan) 5 mg PO Q6H PRN PRN Reason: Hiccups Metoprolol Tartrate (Lopressor) 25 mg PO BID [facility] Last Admin: 08/30/16 08:24 Dose: 25 mg Non-Formulary Medication (Budesonide [Budesonide]) 1 mg IH DAILY [facility] [place] Last Admin: 08/30/16 09:09 Dose: Not Given Ondansetron HCl (Zofran) 4 mg IVPUSH Q4H PRN PRN Reason: Nausea Sertraline HCl (Zoloft) 50 mg PO DAILY [facility] Last Admin: 08/30/16 08:24 Dose: 50 mg Simvastatin (Zocor) 20 mg PO MOWEFR@2100 [facility] Addendum entered and electronically signed by Ivory Longoria MD 08/30/16 17:36 : Discharge Summary - Hospital Course Free Text/Narrative:: Patient requires Home Health agency. Patient is homebound: he is unsteady when walking and risk of falls. weakness and deconditioning. He also requires longterm to monitor medications, possible PT/OT. Dr. Braxton will continue to follow for once dc from the hospital. - Discharge Data Discharge Date: 08/30/16 Discharge Disposition: Home, W Home Health Agency 06 Condition: Fair - Patient Summary/Data Consults: Consultations 08/30/16 13:19 Consult to Home Health [CONS] Routine - Patient Instructions Diet: Regular Diet as Tolerated Activity: As Tolerated Driving: Do Not Drive Showering/Bathing: May Shower Notify Provider of: Fever, Increased Pain, Swelling and Redness, Drainage, Nausea and/or Vomiting - Discharge Plan Prescriptions/Med Rec: Baclofen [Lioresal] 5 mg PO TID PRN #30 tablet PRN Reason: Spasms Metoclopramide [Reglan] 5 mg PO Q6H PRN #30 tablet PRN Reason: Nausea/Vomiting Morphine 15 mg PO Q4H #30 tablet Home Medications: Home Meds Sertraline [Zoloft] 50 mg PO DAILY 03/19/14 [History] Simvastatin [Zocor] 20 mg PO MOWEFR@2100 03/19/14 [History] ClonazePAM [KlonoPIN] 0.5 mg PO BEDTIME 11/04/15 [History] Albuterol/Ipratropium [DuoNeb 3.0-0.5 MG/3 ML] 3 ml IH QID PRN 04/19/16 [History ] Donepezil HCl [Aricept] 10 mg PO QPM 04/19/16 [History] Donepezil HCl [Aricept] 15 mg PO QAM 04/19/16 [History] Metoprolol Tartrate 25 mg PO BID 04/19/16 [History] Apixaban [Eliquis] 5 mg PO BID 07/27/16 [History] Budesonide 1 mg IH DAILY 08/29/16 [History] Baclofen [Lioresal] 5 mg PO TID PRN #30 tablet 08/30/16 [Rx] Metoclopramide [Reglan] 5 mg PO Q6H PRN #30 tablet 08/30/16 [Rx] Morphine 15 mg PO Q4H #30 tablet 08/30/16 [Rx] Patient Handouts: Metoclopramide tablets, Morphine sustained-release tablets, Hiccups, Baclofen tablets, Levofloxacin tablets Referrals: Rosendo Braxton MD [Primary Care Provider] - 09/07/16 2:30 pm - Patient Data Vitals - Most Recent: Last Vital Signs Temp 98.4 F 08/30/16 08:00 Pulse 65 08/30/16 08:24 Resp 20 08/30/16 08:00 BP 117/58 L 08/30/16 08:24 Pulse Ox 97 08/30/16 08:00 Weight - Most Recent: 56.699 kg I&O - Last 24 hours: Intake & Output 08/30/16 08/30/16 08/30/16 06:59 14:59 22:59 Intake Total 250 500 Output Total 300 Balance 250 200 Med Orders - Current: Current Medications Discontinued Medications Albuterol/Ipratropium (Duoneb 3.0-0.5 Mg/3 Ml) 3 ml INH QID PRN PRN Reason: breathing Last Admin: 08/30/16 09:04 Dose: 3 ml Apixaban (Eliquis) 5 mg PO BID A[facility]OS[facility] Last Admin: 08/30/16 08:24 Dose: 5 mg Baclofen (Lioresal) 5 mg PO TID PRN PRN Reason: hiccups Last Admin: 08/30/16 05:09 Dose: 5 mg Chlorpromazine HCl (Thorazine) 25 mg IM ONETIME ONE Stop: 08/29/16 15:57 Last Admin: 08/29/16 16:32 Dose: 25 mg Chlorpromazine HCl (Thorazine) 12.5 mg IM TID PRN PRN Reason: Hiccups Clonazepam (Klonopin) 0.5 mg PO BEDTIME [facility] Last Admin: 08/29/16 20:58 Dose: 0.5 mg Donepezil HCl (Aricept) 15 mg PO QAM [facility] Donepezil HCl (Aricept) 10 mg PO QPM [facility] Donepezil HCl (Aricept) 15 mg PO QAM [facility] Last Admin: 08/29/16 22:06 Dose: Not Given Donepezil HCl (Aricept) 15 mg PO QAM [facility] Last Admin: 08/30/16 08:25 Dose: 15 mg Donepezil HCl (Aricept) 10 mg PO QPM [facility] Donepezil HCl (Aricept) 10 mg PO ONETIME ONE Stop: 08/30/16 22:10 Donepezil HCl (Aricept) 10 mg PO ONETIME ONE Stop: 08/29/16 22:10 Last Admin: 08/29/16 22:42 Dose: 10 mg Levofloxacin/Dextrose 750 mg/ (Premix) 150 mls @ 100 mls/hr IV ONETIME ONE Stop: 08/29/16 18:45 Last Admin: 08/29/16 17:36 Dose: 100 mls/hr Iopamidol (Isovue Multipack-370 (76%)) 70 ml IVPUSH ONETIME STA Stop: 08/30/16 00:24 Last Admin: 08/30/16 00:24 Dose: 70 ml Metoclopramide HCl (Reglan) 10 mg PO Q6H PRN PRN Reason: Hiccups Last Admin: 08/30/16 01:57 Dose: 10 mg Metoclopramide HCl (Reglan) 5 mg PO Q6H PRN PRN Reason: Hiccups Metoprolol Tartrate (Lopressor) 25 mg PO BID [facility] Last Admin: 08/30/16 08:24 Dose: 25 mg Non-Formulary Medication (Budesonide [Budesonide]) 1 mg IH DAILY [facility] Last Admin: 08/30/16 09:09 Dose: Not Given Ondansetron HCl (Zofran) 4 mg IVPUSH Q4H PRN PRN Reason: Nausea Sertraline HCl (Zoloft) 50 mg PO DAILY [facility] Last Admin: 08/30/16 08:24 Dose: 50 mg Simvastatin (Zocor) 20 mg PO MOWEFR@2100 [facility] Original Note: Discharge Summary - Hospital Course Free Text/Narrative:: 86 yo male with past medical history of HTN, myoclonus, atrial fibrillation anticoagulated with Eliquis admitted for intractable hiccups x 5 days. His chest x-ray showed right upper lobe density. He was given one dose of Levaquin, Reglan, erythema, baclofen. He did not have fever, chills, abdominal pain, cough , chest pain, nausea, vomiting, diarrhea or other pertinent symptoms. He has mild shortness of breath which improved with 2 L of nasal cannula oxygen. CBC and BMP unremarkable. A chest CT with contrast revealed right upper lobe complete consolidation recommending bronchoscopy. After discussing these findings on patient had refused bronchoscopy and would like to go home with hospice consultation and home health care. He was discharged with baclofen, morphine for shortness of breath, Reglan, Levaquin for 4 additional days. He may resume his home medications. Hospice and home health care consult was placed. He has appointment with Dr. Braxton his PCP. - Discharge Data Discharge Date: 08/30/16 Discharge Disposition: Home, W Home Health Agency 06 Condition: Fair - Patient Instructions Diet: Regular Diet as Tolerated Activity: As Tolerated Driving: Do Not Drive Showering/Bathing: May Shower Notify Provider of: Fever, Increased Pain, Swelling and Redness, Drainage, Nausea and/or Vomiting - Discharge Plan Prescriptions/Med Rec: Baclofen [Lioresal] 5 mg PO TID PRN #30 tablet PRN Reason: Spasms Metoclopramide [Reglan] 5 mg PO Q6H PRN #30 tablet PRN Reason: Nausea/Vomiting Morphine 15 mg PO Q4H #30 tablet Home Medications: Home Meds Sertraline [Zoloft] 50 mg PO DAILY 03/19/14 [History] Simvastatin [Zocor] 20 mg PO MOWEFR@2100 03/19/14 [History] ClonazePAM [KlonoPIN] 0.5 mg PO BEDTIME 11/04/15 [History] Albuterol/Ipratropium [DuoNeb 3.0-0.5 MG/3 ML] 3 ml IH QID PRN 04/19/16 [History ] Donepezil HCl [Aricept] 10 mg PO QPM 04/19/16 [History] Donepezil HCl [Aricept] 15 mg PO QAM 04/19/16 [History] Metoprolol Tartrate 25 mg PO BID 04/19/16 [History] Apixaban [Eliquis] 5 mg PO BID 07/27/16 [History] Budesonide 1 mg IH DAILY 08/29/16 [History] Baclofen [Lioresal] 5 mg PO TID PRN #30 tablet 08/30/16 [Rx] Metoclopramide [Reglan] 5 mg PO Q6H PRN #30 tablet 08/30/16 [Rx] Morphine 15 mg PO Q4H #30 tablet 08/30/16 [Rx] Patient Handouts: Metoclopramide tablets, Morphine sustained-release tablets, Hiccups, Baclofen tablets, Levofloxacin tablets Referrals: Rosendo Braxton MD [Primary Care Provider] - 09/07/16 2:30 pm - General Info Date of Service: 08/30/16 - Review of Systems General: Reports: No Symptoms Pulmonary: Reports: shortness of breath. Denies: cough, sputum, hemoptysis, wheezing Cardiovascular: Reports: No Symptoms Gastrointestinal: Reports: Other (hiccups) Musculoskeletal: Reports: no symptoms Skin: Reports: no symptoms Neurological: Reports: No Symptoms Psychiatric: Reports: no symptoms - Patient Data Vitals - Most Recent: Last Vital Signs Temp 98.4 F 08/30/16 08:00 Pulse 65 08/30/16 08:24 Resp 20 08/30/16 08:00 BP 117/58 L 08/30/16 08:24 Pulse Ox 97 08/30/16 08:00 Weight - Most Recent: 56.699 kg I&O - Last 24 hours: Intake & Output 08/29/16 08/30/16 08/30/16 22:59 06:59 14:59 Intake Total 250 Balance 250 Med Orders - Current: Current Medications Albuterol/Ipratropium (Duoneb 3.0-0.5 Mg/3 Ml) 3 ml INH QID PRN PRN Reason: breathing Last Admin: 08/30/16 09:04 Dose: 3 ml Apixaban (Eliquis) 5 mg PO BID [facility] Last Admin: 08/30/16 08:24 Dose: 5 mg Baclofen (Lioresal) 5 mg PO TID PRN PRN Reason: hiccups Last Admin: 08/30/16 05:09 Dose: 5 mg Chlorpromazine HCl (Thorazine) 12.5 mg IM TID PRN PRN Reason: Hiccups Clonazepam (Klonopin) 0.5 mg PO BEDTIME [facility] [place] Last Admin: 08/29/16 20:58 Dose: 0.5 mg Donepezil HCl (Aricept) 15 mg PO QAM [facility] [place] Last Admin: 08/30/16 08:25 Dose: 15 mg Donepezil HCl (Aricept) 10 mg PO QPM [facility] [place] Metoclopramide HCl (Reglan) 5 mg PO Q6H PRN PRN Reason: Hiccups Metoprolol Tartrate (Lopressor) 25 mg PO BID [facility] [place] Last Admin: 08/30/16 08:24 Dose: 25 mg Non-Formulary Medication (Budesonide [Budesonide]) 1 mg IH DAILY [facility] [place] Last Admin: 08/30/16 09:09 Dose: Not Given Ondansetron HCl (Zofran) 4 mg IVPUSH Q4H PRN PRN Reason: Nausea Sertraline HCl (Zoloft) 50 mg PO DAILY [facility] [place] Last Admin: 08/30/16 08:24 Dose: 50 mg Simvastatin (Zocor) 20 mg PO MOWEFR@2100 [facility] Discontinued Medications Chlorpromazine HCl (Thorazine) 25 mg IM ONETIME ONE Stop: 08/29/16 15:57 Last Admin: 08/29/16 16:32 Dose: 25 mg Donepezil HCl (Aricept) 15 mg PO QAM A[facility]OS[facility] Donepezil HCl (Aricept) 10 mg PO QPM [facility] Donepezil HCl (Aricept) 15 mg PO QAM [facility] Last Admin: 08/29/16 22:06 Dose: Not Given Donepezil HCl (Aricept) 10 mg PO ONETIME ONE Stop: 08/30/16 22:10 Donepezil HCl (Aricept) 10 mg PO ONETIME ONE Stop: 08/29/16 22:10 Last Admin: 08/29/16 22:42 Dose: 10 mg Levofloxacin/Dextrose 750 mg/ (Premix) 150 mls @ 100 mls/hr IV ONETIME ONE Stop: 08/29/16 18:45 Last Admin: 08/29/16 17:36 Dose: 100 mls/hr Iopamidol (Isovue Multipack-370 (76%)) 70 ml IVPUSH ONETIME STA Stop: 08/30/16 00:24 Last Admin: 08/30/16 00:24 Dose: 70 ml Metoclopramide HCl (Reglan) 10 mg PO Q6H PRN PRN Reason: Hiccups Last Admin: 08/30/16 01:57 Dose: 10 mg - Exam Quality Assessment: Reports: supplemental oxygen General: Reports: alert, oriented, cooperative, other (hiccups) HEENT: Reports: Pupils equal, EOMI Neck: Reports: supple, trachea midline Lungs: Reports: Normal respiratory effort, Decreased breath sounds Cardiovascular: Reports: Regular Rate, Regular Rhythm Abdomen: Reports: bowel sounds present, soft Back Exam: Reports: Normal Inspection, Full Range of Motion Extremities: Reports: no edema Skin: Reports: warm, dry, intact Neurological: Reports: no new focal deficit Psy/Mental Status: Reports: alert, normal affect, normal mood *Q Meaningful Use (DIS) - VTE *Q VTE Criteria *Q: - Stroke *Q Stroke Criteria *Q: - AMI *Q AMI Criteria *Q:
--- NOTE | 2016-08-30 17:22 | CR ---
EXAM DATE: 08/30/16 PATIENT'S AGE: 86 Patient: CHAVA LANDRY Facility: [place], [place] Site . Site : 1932 Study: XRay Chest [id number]/[id number] 3:41:44 PM Ordering Physician: Dwayne Corrales Final Report: CLINICAL INDICATION: Hiccups for 4 days. Shortness of breath. Fatigue. Comparison : 07/27/2016. Findings: There is very dense consolidation and collapse of the right upper lobe. This is a new finding since the previous radiograph. The left lung is clear. The heart is normal in size. The is a pacemaker device upon the left side of the chest with a right ventricular lead in place. The pulmonary vasculature is normal. The bony thorax appears intact. Impression: Dense consolidation and collapse of the right upper lobe new since 07/27/2016. Contrast infused chest CT is recommended for further evaluation. The patient may also require bronchoscopy. Dictated by Jaren Louis MD @ Aug 29 2016 3:52PM (Electronic Signature) Report Signed by Proxy. IRIS
--- NOTE | 2016-08-30 18:14 | CT ---
EXAM DATE: 08/30/16 PATIENT'S AGE: 86 Patient: CHAVA LANDRY Facility: [place], [place] Site . Site : 1932 Study: CT Chest w cont [id number]/3/2017 12:22:40 AM Ordering Physician: Anne Workman Final Report: TECHNIQUE: IV contrast-enhanced CT of the chest. INDICATION: Dense right upper lobe consolidation on recent chest x-ray. FINDINGS: There is complete consolidation of the right upper lobe with volume loss and areas of geographic relatively lower attenuation. Entire right upper lobe bronchial tree is completely opacified. There is mild emphysema in the remainder of the lungs. Mild mucous plugging in several left lower lobe bronchi. No thoracic lymphadenopathy by CT size criteria. Small right pleural effusion. Cysts in the right kidney.. Impression: Complete consolidation of the right upper lobe and opacification of the right upper lobe bronchial tree. Consider bronchoscopy. Please note that all CT scans performed at this facility use dose modulation, iterative reconstruction, and/or weight based dosing when appropriate to reduce radiation dose to as low as reasonably achievable. Dictated by Shadi Duong MD @ 08/30/2016 12:50:52 AM Dictated by: Shadi Duong MD @ 08/30/2016 00:50:57 (Electronic Signature) Report Signed by Proxy. IRIS
[2016-08-30] MEDS ORDERED: Simvastatin 40 MG Tab PO SCH (21:00)
[2016-08-30] MEDS ORDERED: Donepezil 10 MG Tab PO ONE (22:09)
== END 2016-08-30 13:30 | disposition home health service (06) | DRG 190 ==
LOC: MW.ED 15:04 → MW.MS 17:52 → OBSVTOIN 08-30 01:39
PROVIDERS: ADMIT Internal Medicine; ATTEND Internal Medicine
DX: J44.0 Chronic obstructive pulmonary disease with (acute) lower respiratory infection (principal); J18.9 Pneumonia, unspecified organism; J44.1 Chronic obstructive pulmonary disease with (acute) exacerbation; R06.6 Hiccough; I49.9 Cardiac arrhythmia, unspecified; R06.02 Shortness of breath; I25.10 Atherosclerotic heart disease of native coronary artery without angina pectoris; R53.1 Weakness; I10 Essential (primary) hypertension; I48.91 Unspecified atrial fibrillation; G25.3 Myoclonus; Z95.0 Presence of cardiac pacemaker; Z87.891 Personal history of nicotine dependence; Z79.899 Other long term (current) drug therapy; Z79.01 Long term (current) use of anticoagulants; Z91.81 History of falling; Z51.5 Encounter for palliative care
CPT/HCPCS: 36415; 71020; 71260; 80053; 81001; 83605; 83735; 84484; 85025; 85610; 87040 ×2; 93005; 96372; 96374; 99285; A9270 ×5; J1956; J3230; Q9967; 87077; 87186; 94640; 96365; 99283; G0378

== ENCOUNTER 2017-02-25 12:19 | Inpatient (IN) | payer MEDICARE ==
[2017-02-25] MEDS ORDERED: Albuterol/Ipratropium 3.0-0.5 MG/3 ML Neb Soln NEB ONE (12:33)
[2017-02-25] MEDS ORDERED: Famotidine 20 MG/2 ML SDV IVPUSH ONE (12:34)
[2017-02-25] MEDS ORDERED: Aspirin 81 MG Tab.Chew PO ONE (12:34)
[2017-02-25] MEDS ORDERED: Alum Hydrox/Mag Hydrox/Simeth 15 ML, Metoclopramide 5 MG, Lidocaine 2% 5 ML PO ONE ×3 (12:34)
[2017-02-25] MEDS ORDERED: Ketorolac 30 MG/ML SDV IVPUSH ONE (12:34)
[2017-02-25] MEDS ORDERED: Nitroglycerin 2% Oint 1 GM UD Packet TOP ONE (12:34)
[2017-02-25 13:11] LABS: CHLORIDE,CL 108 mmol/L (98-110); SODIUM,NA 140 mmol/L (136-146)
--- NOTE | 2017-02-25 13:28 | EDM.PDOC ---
ED HPI GENERAL MEDICAL PROBLEM - General Chief Complaint: Respiratory Problem Stated Complaint: AMBULANCE Time Seen by Provider: 02/25/17 13:10 Source of Information: Reports: Patient History Limitations: Reports: No Limitations - History of Present Illness INITIAL COMMENTS - FREE TEXT/NARRATIVE: History of present illness: [87-year-old male brought in via EMS with family. Patient per family has become slowly decompensated with decreased level of consciousness and lack of oral intake for proximally 48 hours. Family indicates that he has gotten progressively weaker over the last 3 days and now they're concerned he Has they can get him to eat or drink anything. Patient usually uses a walker and ambulates from bed to recliner now he has become a total assist with a full body left by daughter into recliner and back to bed.] Review of systems: As per history of present illness and below otherwise all systems reviewed and negative. Past medical history: As per history of present illness and as reviewed below otherwise noncontributory. Surgical history: As per history of present illness and as reviewed below otherwise noncontributory. Social history: No reported history of drug or alcohol abuse. Family history: As per history of present illness and as reviewed below otherwise noncontributory. Physical exam: HEENT: Atraumatic, normocephalic, pupils reactive, negative for conjunctival pallor or scleral icterus, mucous membranes moist, throat clear, neck supple, nontender, trachea midline. Lungs: Diminished and coarse throughout status post Med-Neb via EMS, chest nontender. Heart: S1S2, regular, negative for clicks, rubs, or JVD. Abdomen: Soft, nondistended, nontender. Negative for masses or hepatosplenomegaly. Negative for costovertebral tenderness. Pelvis: Stable nontender. Genitourinary: Deferred. Rectal: Deferred. Extremities: Atraumatic, patient with somewhat limited range of motion and low- grade contractures. Neurovascular unremarkable. Neuro: Somnolent but arousable able to follow basic commands but notable altered sensorium. Patient with no interactive dialogue despite repeated questioning. Dr. Rodríguez here to assess patient at bedside decision made to admit Diagnostics: [CBC, CMP, lactic acid, chest x-ray, blood cultures, troponin, chest x-ray, EKG] Therapeutics: [Saline lock, Pepcid, Med-Neb] Impression: [#1 pneumonia #2 altered mental status] Plan: [Med to Dr. Rodríguez] Definitive disposition and diagnosis as appropriate pending reevaluation and review of above. - Related Data Allergies Allergy/AdvReac Type Severity Reaction Status Date / Time No Known Allergies Allergy Verified 02/25/17 12:45 Home Meds: Home Meds Apixaban [Eliquis] 5 mg PO DAILY 02/25/17 [History] Budesonide [Pulmicort] 0.5 mg IH BID 02/25/17 [History] ClonazePAM [KlonoPIN] 0.5 mg PO BID 02/25/17 [History] Donepezil [Aricept] 10 mg PO ONETIME 02/25/17 [History] Ipratropium/Albuterol Sulfate [Iprat-Albut 0.5-3(2.5) MG/3 ML] 3 ml IH ASDIRECTED 02/25/17 [History] Memantine [Namenda] 10 mg PO BID 02/25/17 [History] Metoprolol Tartrate [Metoprolol Tartrate] 1 tab PO BID 02/25/17 [History] Prednisone [IJD: Prednisone] 10 mg PO 02/25/17 [History] Sertraline HCl [Sertraline HCl] 1 tab PO DAILY 02/25/17 [History] Past Medical History HEENT History: Reports: Hard of Hearing, Macular Degeneration, Other (See Below) Other HEENT History: legally blind Cardiovascular History: Reports: Arrhythmia, Hypertension, Pacemaker Other Cardiovascular History: Pacemaker placed 6 years ago. Respiratory History: Reports: COPD Other Respiratory History: on home oxygen at 2-3 liters per minute via nasal cannula during the night Musculoskeletal History: Reports: Arthritis, Gout Neurological History: Reports: Other (See Below) Other Neuro History: myoclonis Hematologic History: Reports: Anticoagulation Therapy, Blood Transfusion(s) - Infectious Disease History Infectious Disease History: Reports: C-Difficile Other Infectious Disease History: X 3 years ago-C-Diff - Past Surgical History HEENT Surgical History: Reports: Cataract Surgery Other Cardiovascular Surgeries/Procedures: vocal cord surgery Dermatological Surgical History: Reports: None Social & Family History - Family History Family Medical History: Noncontributory Oncologic: Reports: Bladder, Lung - Tobacco Use Smoking Status *Q: Unknown Ever Smoked Years of Tobacco use: 60 Packs/Tins Daily: 0.1 Used Tobacco, but Quit: Yes Month Tobacco Last Used: 4 Second Hand Smoke Exposure: No - Caffeine Use Caffeine Use: Reports: Coffee Caffeine Use Comment: 1-2cups/day - Alcohol Use Days Per Week of Alcohol Use: 0 - Recreational Drug Use Recreational Drug Use: No ED ROS GENERAL - Review of Systems Review Of Systems: See Below (The history of present illness) ED EXAM, GENERAL - Physical Exam Exam: See Below (See history of present illness) Course - Vital Signs Last Recorded V/S: Last Vital Signs Temp 36.3 C 02/25/17 12:30 Pulse 68 02/25/17 12:30 Resp 22 H 02/25/17 12:30 BP 129/69 02/25/17 12:30 Pulse Ox 95 02/25/17 12:30 - Orders/Labs/Meds Orders: Active Orders 24 hr Category Date Time Status EKG Documentation Completion [RC] STAT Care 02/25/17 12:34 Active RT Aerosol Therapy [RC] ASDIRECTED Care 02/25/17 12:33 Active Chest 1V Frontal [CR] Stat Exams 02/25/17 12:34 Taken CULTURE BLOOD [BC] Stat Lab 02/25/17 12:37 Received CULTURE BLOOD [BC] Stat Lab 02/25/17 12:55 Received Blood Culture x2 Reflex Set [OM.PC] Stat Oth 02/25/17 12:34 Ordered Saline Lock Insert [OM.PC] Stat Oth 02/25/17 12:34 Ordered Labs: Laboratory Tests 02/25/17 02/25/17 02/25/17 Range/Units 12:37 12:37 12:37 WBC 12.71 H (4.0-11.0) K/uL RBC 3.99 L (4.50-5.90) M/uL Hgb 12.8 L (13.0-17.0) g/dL Hct 37.6 L (38.0-50.0) % MCV 94.2 (80.0-98.0) fL MCH 32.1 H (27.0-32.0) pg MCHC 34.0 (31.0-37.0) g/dL RDW Std Deviation 47.6 (28.0-62.0) fl RDW Coeff of [place] 14 (11.0-15.0) % Plt Count 246 (150-400) K/uL MPV 9.30 (7.40-12.00) fL Neut % (Auto) 67.5 (48.0-80.0) % Lymph % (Auto) 22.0 (16.0-40.0) % [place] % (Auto) 9.2 (0.0-15.0) % Eos % (Auto) 0.9 (0.0-7.0) % Baso % (Auto) 0.4 (0.0-1.5) % Neut # (Auto) 8.6 H (1.4-5.7) K/uL Lymph # (Auto) 2.8 H (0.6-2.4) K/uL [place] # (Auto) 1.2 H (0.0-0.8) K/uL Eos # (Auto) 0.1 (0.0-0.7) K/uL Baso # (Auto) 0.1 (0.0-0.1) K/uL Nucleated RBC % 0.0 /100WBC Nucleated RBCs # 0 K/uL INR (0.86-1.11) Lactate 1.5 (0.20-2.00) mmol/L Sodium 140 (136-146) mmol/L Potassium 4.4 (3.5-5.1) mmol/L Chloride 108 (98-110) mmol/L Carbon Dioxide 23 (21-31) mmol/L BUN 22 (6.0-23.0) mg/dL Creatinine 1.3 (0.6-1.5) mg/dL Est Cr Clr Drug Dosing TNP Estimated GFR (MDRD) 52.5 ml/min Glucose 97 (60-110) mg/dL Calcium 9.1 (8.8-10.8) mg/dL Total Bilirubin 0.8 (0.1-1.5) mg/dL AST 18 (5-40) IU/L ALT 12 (8-54) IU/L Alkaline Phosphatase 67 (40-150) CK-MB (CK-2) 0.6 (0-6.6) ng/ml Troponin I < 0.10 (0.0-0.29) NG/ML Total Protein 7.5 (6.0-8.0) g/dL Albumin 3.1 L (3.4-4.8) g/dL Globulin 4.4 H (2.0-3.5) g/dL Albumin/Globulin Ratio 0.7 L (1.3-2.8) Amylase 31 (10-90) U/L Lipase 10 (7-80) U/L Urine Color Urine Appearance Urine pH (5.0-8.0) Ur Specific [place] (1.001-1.035) Urine Protein (NEGATIVE) mg/dL Urine Glucose (UA) (NEGATIVE) mg/dL Urine Ketones (NEGATIVE) mg/dL Urine Occult Blood (NEGATIVE) Urine Nitrite (NEGATIVE) Urine Bilirubin (NEGATIVE) Urine Urobilinogen (<2.0) EU/dL Ur Leukocyte Esterase (NEGATIVE) Urine RBC (0-2/HPF) Urine WBC (0-5/HPF) Ur Epithelial Cells (NONE-FEW) Amorphous Sediment (NEGATIVE) Urine Bacteria (NEGATIVE) 02/25/17 02/25/17 Range/Units 12:37 13:28 WBC (4.0-11.0) K/uL RBC (4.50-5.90) M/uL Hgb (13.0-17.0) g/dL Hct (38.0-50.0) % MCV (80.0-98.0) fL MCH (27.0-32.0) pg MCHC (31.0-37.0) g/dL RDW Std Deviation (28.0-62.0) fl RDW Coeff of [place] (11.0-15.0) % Plt Count (150-400) K/uL MPV (7.40-12.00) fL Neut % (Auto) (48.0-80.0) % Lymph % (Auto) (16.0-40.0) % [place] % (Auto) (0.0-15.0) % Eos % (Auto) (0.0-7.0) % Baso % (Auto) (0.0-1.5) % Neut # (Auto) (1.4-5.7) K/uL Lymph # (Auto) (0.6-2.4) K/uL [place] # (Auto) (0.0-0.8) K/uL Eos # (Auto) (0.0-0.7) K/uL Baso # (Auto) (0.0-0.1) K/uL Nucleated RBC % /100WBC Nucleated RBCs # K/uL INR 1.12 H (0.86-1.11) Lactate (0.20-2.00) mmol/L Sodium (136-146) mmol/L Potassium (3.5-5.1) mmol/L Chloride (98-110) mmol/L Carbon Dioxide (21-31) mmol/L BUN (6.0-23.0) mg/dL Creatinine (0.6-1.5) mg/dL Est Cr Clr Drug Dosing Estimated GFR (MDRD) ml/min Glucose (60-110) mg/dL Calcium (8.8-10.8) mg/dL Total Bilirubin (0.1-1.5) mg/dL AST (5-40) IU/L ALT (8-54) IU/L Alkaline Phosphatase (40-150) CK-MB (CK-2) (0-6.6) ng/ml Troponin I (0.0-0.29) NG/ML Total Protein (6.0-8.0) g/dL Albumin (3.4-4.8) g/dL Globulin (2.0-3.5) g/dL Albumin/Globulin Ratio (1.3-2.8) Amylase (10-90) U/L Lipase (7-80) U/L Urine Color YELLOW Urine Appearance SLT CLOUDY Urine pH 5.5 (5.0-8.0) Ur Specific [place] 1.025 (1.001-1.035) Urine Protein NEGATIVE (NEGATIVE) mg/dL Urine Glucose (UA) NEGATIVE (NEGATIVE) mg/dL Urine Ketones NEGATIVE (NEGATIVE) mg/dL Urine Occult Blood MODERATE (NEGATIVE) Urine Nitrite NEGATIVE (NEGATIVE) Urine Bilirubin NEGATIVE (NEGATIVE) Urine Urobilinogen 0.2 (<2.0) EU/dL Ur Leukocyte Esterase NEGATIVE (NEGATIVE) Urine RBC 8-10 (0-2/HPF) Urine WBC 0-2 (0-5/HPF) Ur Epithelial Cells FEW (NONE-FEW) Amorphous Sediment FEW (NEGATIVE) Urine Bacteria FEW (NEGATIVE) Meds: Medications Discontinued Medications Generic Name Dose Route Start Last Admin Trade Name Freq PRN Reason Stop Dose Admin Albuterol/Ipratropium 3 ml 02/25/17 12:33 02/25/17 12:39 Duoneb 3.0-0.5 Mg/3 Ml NEB 02/25/17 12:34 3 ml ONETIME ONE Administration Aspirin 324 mg 02/25/17 12:34 02/25/17 13:07 Aspirin PO 02/25/17 12:35 Not Given ONETIME ONE Al Hydroxide/Mg Hydroxide 15 0 ml 02/25/17 12:34 02/25/17 13:02 ml/ Metoclopramide HCl 5 mg/ PO 02/25/17 12:35 Not Given Lidocaine HCl 5 ml ONETIME ONE Famotidine 20 mg 02/25/17 12:34 02/25/17 13:08 Pepcid IVPUSH 02/25/17 12:35 20 mg ONETIME ONE Administration Ketorolac Tromethamine 30 mg 02/25/17 12:34 02/25/17 13:16 Toradol IVPUSH 02/25/17 12:35 Not Given ONETIME ONE Nitroglycerin 0.5 gm 02/25/17 12:34 02/25/17 13:02 Nitro-Bid 2% TOP 02/25/17 12:35 Not Given ONETIME ONE Departure - Departure Time of Disposition: 14:48 Disposition: Admitted As Inpatient 68 Condition: Good Clinical Impression: CAP (community acquired pneumonia), Altered mental status - Discharge Information Referrals: Rosendo Braxton MD [Primary Care Provider] - Forms: ED Department Discharge - My Orders Last 24 Hours: My Active Orders 02/25/17 12:33 RT Aerosol Therapy [RC] ASDIRECTED 02/25/17 12:34 EKG Documentation Completion [RC] STAT Chest 1V Frontal [CR] Stat Blood Culture x2 Reflex Set [OM.PC] Stat Saline Lock Insert [OM.PC] Stat 02/25/17 12:37 CULTURE BLOOD [BC] Stat 02/25/17 12:55 CULTURE BLOOD [BC] Stat - Assessment/Plan Last 24 Hours: My Active Orders 02/25/17 12:33 RT Aerosol Therapy [RC] ASDIRECTED 02/25/17 12:34 EKG Documentation Completion [RC] STAT Chest 1V Frontal [CR] Stat Blood Culture x2 Reflex Set [OM.PC] Stat Saline Lock Insert [OM.PC] Stat 02/25/17 12:37 CULTURE BLOOD [BC] Stat 02/25/17 12:55 CULTURE BLOOD [BC] Stat
[2017-02-25] MEDS ORDERED: Levofloxacin/Dextrose 5%-Water 750 MG in Premix Bag 1 BAG IV ONE (14:47)
[2017-02-25] MEDS ORDERED: Acetaminophen 650 MG Supp RECTAL PRN (15:13)
--- NOTE | 2017-02-25 15:55 | PCM.HP ---
Addendum entered and electronically signed by Aubree Jones NP 02/25/17 16:49 : Patient is on Elquis BID not Xarelto. Original Note: H&P History of Present Illness - General Date of Service: 02/25/17 Admit Problem/Dx: Pneumonia Source of Information: Family ( and daughter at bedside). No: Patient History Limitations: Reports: No Limitations - History of Present Illness Initial Comments - Free Text/Narative: This 87 year old male with pmh of HTN, myclonus, dementia, and R upper lobe density presented to the ED today via EMS with and daughter. He is unresponsive or minimally responsive to questioning. Nick was discharge in August 2016 after having pneumonia and finding a R upper lobe density, which he declined wanting anything further regrding treatment or evaluation for. He was discharged home with Home health with consideration of Hospice. He was doing well until [place], per family report. SInce they he has slowly declined in strength and wakefulness. Most recently, he has been nearly unresponsive and unable to assist in transfers to chair. The daughter reports he ate peaches and grilled cheese yesterday afternoon for lunch, but reports a drastic change in alertness since then. She denies him coughing while eating or choking. He has been eating and drinking very little recently. In the ED ild leukocytosis noted, 12, 710 Hgb 12.8, lactate 1.5, BUN 22 Cr 1.3 and UA negative. CXR revealed, "stable abnormal chest findings from 01/19/2017. Persistent right suprahilar and paratracheal fullness, consider underlying mass , lymphadenopathy, or partial right upper lobe collapse". He was treated with Levaquin for PNA. Dr. Rodríguez spoke with family, who request palliative treatment for community acquired pneumonia. They would like to try antibiotics for a couple days and if no progress is noticed, they would then transfer care to Hospice and transfer to [place]. This again was reviewed with and daughter and they continue to agree with this plan. They are ok with antibiotics and IVFs , but would not want anything further interventions such as pressors or mechanical ventilation or endotracheal intubation. He will be admitted inpatient for AMS and CAP. PCP, Dr Braxton. - Related Data Allergies/Adverse Reactions: Allergies Allergy/AdvReac Type Severity Reaction Status Date / Time No Known Allergies Allergy Verified 02/25/17 12:45 Home Medications: Home Meds Apixaban [Eliquis] 5 mg PO DAILY 02/25/17 [History] Budesonide [Pulmicort] 0.5 mg IH BID 02/25/17 [History] ClonazePAM [KlonoPIN] 0.5 mg PO BID 02/25/17 [History] Donepezil [Aricept] 10 mg PO ONETIME 02/25/17 [History] Ipratropium/Albuterol Sulfate [Iprat-Albut 0.5-3(2.5) MG/3 ML] 3 ml IH ASDIRECTED 02/25/17 [History] Memantine [Namenda] 10 mg PO BID 02/25/17 [History] Metoprolol Tartrate [Metoprolol Tartrate] 1 tab PO BID 02/25/17 [History] Prednisone [IJD: Prednisone] 10 mg PO 02/25/17 [History] Sertraline HCl [Sertraline HCl] 1 tab PO DAILY 02/25/17 [History] Past Medical History HEENT History: Reports: Hard of Hearing, Macular Degeneration, Other (See Below) Other HEENT History: legally blind Cardiovascular History: Reports: Afib, Hypertension, Pacemaker Respiratory History: Reports: COPD Other Respiratory History: on home oxygen at 2-3 liters per minute via nasal cannula during the night Gastrointestinal History: Reports: None Genitourinary History: Reports: None Musculoskeletal History: Reports: Arthritis, Gout Neurological History: Reports: Other (See Below) Other Neuro History: myoclonus Psychiatric History: Reports: Dementia Endocrine/Metabolic History: Reports: None. Denies: Diabetes, Type II, Hypothyroidism Hematologic History: Reports: Anticoagulation Therapy, Blood Transfusion(s) Dermatologic History: Reports: Decubitus Ulcer (Had stage 1 sacral ulcer in December, but now healed.) - Infectious Disease History Infectious Disease History: Reports: C-Difficile - Past Surgical History HEENT Surgical History: Reports: Cataract Surgery Cardiovascular Surgical History: Reports: Pacer Other Cardiovascular Surgeries/Procedures: vocal cord surgery Dermatological Surgical History: Reports: None Social & Family History - Family History Family Medical History: Noncontributory Oncologic: Reports: Bladder, Lung - Tobacco Use Smoking Status *Q: Unknown Ever Smoked Years of Tobacco use: 60 Packs/Tins Daily: 0.1 Used Tobacco, but Quit: Yes Month Tobacco Last Used: 4 Second Hand Smoke Exposure: No - Caffeine Use Caffeine Use: Reports: Coffee Caffeine Use Comment: 1-2cups/day - Alcohol Use Days Per Week of Alcohol Use: 0 - Recreational Drug Use Recreational Drug Use: No - Living Situation & Occupation Living situation: Reports: , with Spouse, with Family Occupation: Retired H&P Review of Systems - Review of Systems: Review Of Systems: Unable To Obtain Free Text/Narrative: Patient unable to provide ROS, he opens eyes to name, but does not verbally respond to questions. Otherwise as per HPI from and daughter. Exam - Exam Exam: See Below - Vital Signs Vital Signs: Last Vital Signs Temp 97.3 F 02/25/17 15:13 Pulse 76 02/25/17 15:13 Resp 24 H 02/25/17 15:13 BP 131/58 L 02/25/17 15:13 Pulse Ox 98 02/25/17 15:13 - Exam Quality Assessment: Supplemental Oxygen. No: Skin Breakdown General: Obtunded, Other (cachectic in appearance. ) HEENT: Other (dentures in place and appear as though they need to be cleaned. Patient refuses to have these taken out. will try later. ). No: Conjunctiva Clear (yellow/greenish drainage to L eye with some crusting noted. ) , Mucosa Moist & [place] Lungs: Rhonchi (throughout), Other (moist weak cough noted, unable to clear secretions. Noisy bronchial sounds heard throughout lung bruno.). No: Clear to Auscultation, Normal Respiratory Effort (labored. ) Cardiovascular: Regular Rate, Regular Rhythm, Normal S1, Normal S2. No: Systolic Murmur GI/Abdominal Exam: Normal Bowel Sounds, Soft, Non-Tender, No Organomegaly, No Distention, No Abnormal Bruit, No Mass, Pelvis Stable Back Exam: Normal Inspection, Full Range of Motion Extremities: Normal Inspection, Normal Range of Motion, Non-Tender, No Pedal Edema, Normal Capillary Refill Neuro Extensive - Mental Status: Opens Eyes to Commands (open eyes to name, but no verbal response. ) Neuro Extensive - Motor, Sensory, Reflexes: No: Normal Gait - Patient Data Result Diagrams: 02/25/17 12:37 02/25/17 12:37 EKG INTERPRETATION EKG Date: 02/25/17 Rhythm: NSR EKG Interpretation Comments: ventricular bigeminy, prolonged IN (borderline) *Q Meaningful Use (ADM) - VTE *Q VTE Criteria *Q: - Stroke *Q Stroke Criteria *Q: - AMI *Q AMI Criteria *Q: - Problem List (1) CAP (community acquired pneumonia) SNOMED Code(s): 144329699 ICD Code: J18.9 - PNEUMONIA, UNSPECIFIED ORGANISM Status: Acute Current Visit: Yes Qualifiers: Laterality: right Lung location: upper lobe of lung Qualified Code(s): J18.1 - Lobar pneumonia, unspecified organism (2) Altered mental status SNOMED Code(s): 430255474 ICD Code: R41.82 - ALTERED MENTAL STATUS, UNSPECIFIED Status: Acute Current Visit: Yes Qualifiers: Altered mental status type: somnolence Qualified Code(s): R40.0 - Somnolence (3) Protein malnutrition SNOMED Code(s): 161964124 ICD Code: E46 - UNSPECIFIED PROTEIN-CALORIE MALNUTRITION Status: Acute Current Visit: Yes (4) Myoclonus SNOMED Code(s): 88477696 ICD Code: G25.3 - MYOCLONUS Status: Chronic Current Visit: Yes (5) Dementia SNOMED Code(s): 02380645 ICD Code: F03.90 - UNSPECIFIED DEMENTIA WITHOUT BEHAVIORAL DISTURBANCE Status: Chronic Current Visit: Yes (6) Anticoagulant long-term use SNOMED Code(s): 068186943 ICD Code: Z79.01 - PROCUREMENT ACCOUNTANT (CURRENT) USE OF ANTICOAGULANTS Status: Chronic Current Visit: No (7) COPD (chronic obstructive pulmonary disease) SNOMED Code(s): 16035670 ICD Code: J44.9 - CHRONIC OBSTRUCTIVE PULMONARY DISEASE, UNSPECIFIED Status : Chronic Current Visit: No Qualifiers: COPD type: emphysema Emphysema type: unspecified Qualified Code(s): J43.9 - Emphysema, unspecified (8) HTN (hypertension) SNOMED Code(s): 47057032 ICD Code: I10 - ESSENTIAL (PRIMARY) HYPERTENSION Status: Chronic Current Visit: No Qualifiers: Hypertension type: essential hypertension Qualified Code(s): I10 - Essential (primary) hypertension (9) Atrial fibrillation SNOMED Code(s): 10711636 ICD Code: I48.91 - UNSPECIFIED ATRIAL FIBRILLATION Status: Chronic Current Visit: Yes Qualifiers: Atrial fibrillation type: paroxysmal Qualified Code(s): I48.0 - Paroxysmal atrial fibrillation (10) Lung mass SNOMED Code(s): 455117394 ICD Code: R91.8 - OTHER NONSPECIFIC ABNORMAL FINDING OF LUNG FIELD Status: Chronic Current Visit: Yes (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 SNOMED Code(s): 19585066 ICD Code: OJA2802 - Status: Chronic Current Visit: Yes Problem List Initiated/Reviewed/Updated: Yes Orders Last 24hrs: Active Orders 24 hr Category Date Time Status Intake and Output [RC] QSHIFT Care 02/25/17 15:13 Active Oxygen Therapy [RC] PRN Care 02/25/17 15:13 Active Up With Assistance [RC] ASDIRECTED Care 02/25/17 15:13 Active VTE/DVT Education [RC] PER UNIT ROUTINE Care 02/25/17 15:13 Active Vital Signs [RC] Q4H Care 02/25/17 15:13 Active BASIC METABOLIC PANEL,BMP [CHEM] AM Lab 02/26/17 05:11 Ordered CBC WITH AUTO DIFF [HEME] AM Lab 02/26/17 05:11 Ordered VANCOMYCIN TROUGH [CHEM] Routine Lab 02/28/17 15:30 Ordered Acetaminophen [Tylenol] Med 02/25/17 15:13 Active 650 mg RECTAL Q4H PRN Atropine 1% [Atropine 1% Oph Soln] Med 02/25/17 15:14 Active 0.5 ml SL Q2H PRN Levofloxacin/Dextrose 5%-Water [Levaquin in D5W 750 MG/ Med 02/27/17 14:30 Active 150 ML] 750 mg Premix Bag 1 bag IV Q48H Morphine Med 02/25/17 15:13 Active 2 mg IVPUSH Q2H PRN Piperacillin/Tazobactam [Piperacil-Tazobact] 3.375 gm Med 02/25/17 16:00 Active Sodium Chloride 0.9% [Normal Saline] 50 ml IV Q6H Sodium Chloride 0.9% [Normal Saline] 1,000 ml Med 02/25/17 15:15 Active IV ASDIRECTED Vancomycin Pharmacy to Dose [Pharmacy to Dose - Med 02/25/17 15:30 Active Vancomycin] 1 dose .XX ASDIRECTED Vancomycin [Vancocin] 1 gm Med 02/25/17 16:30 Active Sodium Chloride 0.9% [Normal Saline] 250 ml IV Q24H Resuscitation Status Routine Resus Stat 02/25/17 15:13 Ordered Medication Orders Acetaminophen (Tylenol) 650 mg RECTAL Q4H PRN PRN Reason: Pain (mild 1-3) Atropine Sulfate (Atropine 1% Ophth Soln) 0.5 ml SL Q2H PRN PRN Reason: secretions Levofloxacin/Dextrose 750 mg/ (Premix) 150 mls @ 100 mls/hr IV ONETIME ONE Stop: 02/25/17 16:16 Last Admin: 02/25/17 15:13 Dose: 100 mls/hr Levofloxacin/Dextrose 750 mg/ (Premix) 150 mls @ 100 mls/hr IV Q48H [facility] Piperacillin Sod/Tazobactam (Sod 3.375 gm/ Sodium Chloride) 50 mls @ 50 mls/hr IV Q6H [facility] Sodium Chloride (Normal Saline) 1,000 mls @ 100 mls/hr IV ASDIRECTED [facility] Vancomycin HCl 1 gm/ Sodium (Chloride) 250 mls @ 166.667 mls/hr IV Q24H [facility] Morphine Sulfate (Morphine) 2 mg IVPUSH Q2H PRN PRN Reason: Pain (severe 7-10) Vancomycin HCl (Pharmacy To Dose - Vancomycin) 1 dose .XX ASDIRECTED [facility] Assessment/Plan Comment:: This 87 year old male admitted with AMS and possible CAP, possible aspiration pneumonia 1. AMS: Likely secondary to acute illness, will monitor 2. possible CAP/possible aspiration PNA: Palliative care. Will treat with broad spectrum antibiotics due to possible aspiration component, Levaquin, Zosyn and Vancomycin. NS 100 ml/hr for hydration. Family requests keeping him comfortable and would like to try antibiotics for a few days and monitor his response. Oxygen for comfort or keeping sats > or equal to 90%. Duonebs. Will order Atropine for secretions. Cautious with oral intake due to AMS. 3. Myclonus: Takes Aricept 1 1/2 tabs BID with an extra 1/2 tab PRN every 3-5 days for excessive jerking. Did discuss with family regarding if patient is unable to take oral meds, we may need to change medications and possible add Ativan. They are aware of this and would make that decision when it happens. 4. HTN: Stable. Monitor. 5. Afib: On Xarelto and Metoprolol. Will monitor. No afib noted on EKG. Monitor with ability to take po medications. 6. COPD: Continue inhaler, patient may not be able to use due to AMS. Duonebs ordered. VTE prophylaxis: Continue Xarelto as patient able to take po Dispo: 2-4 days pending improvement, if patient improves family will decide on home versus going to care home.
[2017-02-25] MEDS ORDERED: Donepezil 5 MG Tab PO PRN (15:58)
[2017-02-25] MEDS ORDERED: Albuterol/Ipratropium 3.0-0.5 MG/3 ML Neb Soln NEB PRN (16:01)
[2017-02-25] MEDS: Piperacillin/Tazobactam 3.375 GM in Sodium Chloride 0.9% 50 ML IV SCH ×2 (16:51→21:38)
[2017-02-25] MEDS: Sodium Chloride 0.9% 1,000 ML IV SCH (16:51)
--- NOTE | 2017-02-25 16:51 | CR ---
EXAM DATE: 02/25/17 PATIENT'S AGE: 87 Patient: CHAVA LANDRY Facility: [place], [place] Site . Site : 1932 Study: XRay Chest [id number] 1:30:15 PM Ordering Physician: SANDEEP Final Report: INDICATION: Shortness of breath TECHNIQUE: Chest radiograph 1 view COMPARISON: Two view chest dated 01/19/2017. Report only from prior chest CT dated 2016. FINDINGS: Opacification in the right suprahilar region and right paratracheal region, grossly unchanged. Left hemithorax remains clear. Lung bases are clear. No pleural effusion. Heart size remains normal. Left subclavian pacemaker leads intact. IMPRESSION: 1. Stable abnormal chest findings from 01/19/2017. Persistent right suprahilar and paratracheal fullness, consider underlying mass, lymphadenopathy, or partial right upper lobe collapse. Correlate with any prior bronchoscopy findings from chest CT in August 2016. Consider repeat chest CT as clinically warranted. Dictated by Humble Ryder MD @ 02/25/2017 2:00:14 PM Dictated by: Humble Ryder MD @ 02/25/2017 14:00:21 (Electronic Signature) Report Signed by Proxy. IRIS
[2017-02-25] MEDS ORDERED: predniSONE 5 MG Tab PO SCH (17:00)
[2017-02-25] MEDS: Metoprolol Tartrate 25 MG Tab PO SCH (17:35)
[2017-02-25] MEDS: Apixaban 5 MG Tab PO SCH (17:37)
[2017-02-25] MEDS: ClonazePAM 0.5 MG Tab PO SCH (20:15)
[2017-02-25] MEDS: Donepezil 5 MG Tab PO SCH (20:15)
[2017-02-25] MEDS: Memantine 10 MG Tab PO SCH (20:16)
[2017-02-26] MEDS: Piperacillin/Tazobactam 3.375 GM in Sodium Chloride 0.9% 50 ML IV SCH ×2 (03:58→09:56)
[2017-02-26] MEDS: Apixaban 5 MG Tab PO SCH (04:00)
[2017-02-26] MEDS: Sodium Chloride 0.9% 1,000 ML IV SCH (05:53)
[2017-02-26] MEDS: Atropine 1% Ophth Soln 5 ML BOTTLE SL PRN (05:58)
[2017-02-26] MEDS: Metoprolol Tartrate 25 MG Tab PO SCH (08:51)
[2017-02-26] MEDS: Sertraline 50 MG Tab PO SCH (08:51)
[2017-02-26] MEDS: Memantine 10 MG Tab PO SCH ×2 (08:52→21:51)
[2017-02-26] MEDS: Donepezil 5 MG Tab PO SCH ×2 (08:53→21:50)
--- NOTE | 2017-02-26 12:11 | PCM.PN ---
- Review of Systems Systems Review Comment:: nonverbal - Patient Data Vitals - Most Recent: Last Vital Signs Temp 36.2 C 02/26/17 08:00 Pulse 83 02/26/17 08:51 Resp 20 02/26/17 08:00 BP 128/69 02/26/17 08:51 Pulse Ox 97 02/26/17 08:00 Weight - Most Recent: 54 kg I&O - Last 24 Hours: Intake & Output 02/25/17 02/26/17 02/26/17 22:59 06:59 14:59 Intake Total 750 965 100 Output Total 250 550 Balance 500 415 100 Lab Results Last 24 Hours: Laboratory Results - last 24 hr 02/26/17 02/26/17 Range/Units 04:42 04:42 WBC 13.24 H (4.0-11.0) K/uL RBC 3.71 L (4.50-5.90) M/uL Hgb 11.8 L (13.0-17.0) g/dL Hct 34.9 L (38.0-50.0) % MCV 94.1 (80.0-98.0) fL MCH 31.8 (27.0-32.0) pg MCHC 33.8 (31.0-37.0) g/dL RDW Std Deviation 47.8 (28.0-62.0) fl RDW Coeff of [place] 14 (11.0-15.0) % Plt Count 251 (150-400) K/uL MPV 9.30 (7.40-12.00) fL Neut % (Auto) 76.8 (48.0-80.0) % Lymph % (Auto) 13.4 L (16.0-40.0) % Coleman % (Auto) 9.1 (0.0-15.0) % Eos % (Auto) 0.5 (0.0-7.0) % Baso % (Auto) 0.2 (0.0-1.5) % Neut # (Auto) 10.2 H (1.4-5.7) K/uL Lymph # (Auto) 1.8 (0.6-2.4) K/uL Coleman # (Auto) 1.2 H (0.0-0.8) K/uL Eos # (Auto) 0.1 (0.0-0.7) K/uL Baso # (Auto) 0.0 (0.0-0.1) K/uL Nucleated RBC % 0.0 /100WBC Nucleated RBCs # 0 K/uL Sodium 141 (136-146) mmol/L Potassium 4.2 (3.5-5.1) mmol/L Chloride 109 (98-110) mmol/L Carbon Dioxide 21 (21-31) mmol/L BUN 20 (6.0-23.0) mg/dL Creatinine 1.2 (0.6-1.5) mg/dL Est Cr Clr Drug Dosing 34.06 mL/min Estimated GFR (MDRD) 57.5 ml/min Glucose 112 H (60-110) mg/dL Calcium 8.4 L (8.8-10.8) mg/dL Med Orders - Current: Current Medications Acetaminophen (Tylenol) 650 mg RECTAL Q4H PRN PRN Reason: Pain (mild 1-3) Albuterol/Ipratropium (Duoneb 3.0-0.5 Mg/3 Ml) 3 ml NEB Q4HRRT PRN PRN Reason: sob/wheezing Atropine Sulfate (Atropine 1% Oph Soln) 0.5 ml SL Q2H PRN PRN Reason: secretions Last Admin: 02/26/17 05:58 Dose: 0.5 ml Clonazepam (Klonopin) 0.5 mg PO BEDTIME [facility] Last Admin: 02/25/17 20:15 Dose: 0.5 mg Donepezil HCl (Aricept) 15 mg PO BID [facility] Last Admin: 02/26/17 08:53 Dose: 15 mg Donepezil HCl (Aricept) 5 mg PO Q72H PRN PRN Reason: INCREASE IN MYCLONUS Sodium Chloride (Normal Saline) 1,000 mls @ 100 mls/hr IV ASDIRECTED [facility] Last Admin: 02/26/17 05:53 Dose: 100 mls/hr Memantine (Namenda) 5 mg PO BID [facility] Last Admin: 02/26/17 08:52 Dose: 5 mg Morphine Sulfate (Morphine) 2 mg IVPUSH Q2H PRN PRN Reason: Pain (severe 7-10) Sertraline HCl (Zoloft) 50 mg PO DAILY [facility] Last Admin: 02/26/17 08:51 Dose: 50 mg Discontinued Medications Albuterol/Ipratropium (Duoneb 3.0-0.5 Mg/3 Ml) 3 ml NEB ONETIME ONE Stop: 02/25/17 12:34 Last Admin: 02/25/17 12:39 Dose: 3 ml Apixaban (Eliquis) 5 mg PO Q12H [facility] Last Admin: 02/26/17 04:00 Dose: 5 mg Aspirin (Aspirin) 324 mg PO ONETIME ONE Stop: 02/25/17 12:35 Last Admin: 02/25/17 13:07 Dose: Not Given Al Hydroxide/Mg Hydroxide 15 ml/ Metoclopramide HCl 5 mg/Lidocaine HCl 5 ml 0 ml PO ONETIME ONE Stop: 02/25/17 12:35 Last Admin: 02/25/17 13:02 Dose: Not Given Famotidine (Pepcid) 20 mg IVPUSH ONETIME ONE Stop: 02/25/17 12:35 Last Admin: 02/25/17 13:08 Dose: 20 mg Levofloxacin/Dextrose 750 mg/ (Premix) 150 mls @ 100 mls/hr IV ONETIME ONE Stop: 02/25/17 16:16 Last Admin: 02/25/17 15:13 Dose: 100 mls/hr Levofloxacin/Dextrose 750 mg/ (Premix) 150 mls @ 100 mls/hr IV Q48H [facility] Piperacillin Sod/Tazobactam (Sod 3.375 gm/ Sodium Chloride) 50 mls @ 50 mls/hr IV Q6H [facility] Last Admin: 02/26/17 09:56 Dose: 50 mls/hr Vancomycin HCl 1 gm/ Sodium (Chloride) 250 mls @ 166.667 mls/hr IV Q24H [facility] Last Admin: 02/25/17 17:42 Dose: 166.667 mls/hr Ketorolac Tromethamine (Toradol) 30 mg IVPUSH ONETIME ONE Stop: 02/25/17 12:35 Last Admin: 02/25/17 13:16 Dose: Not Given Metoprolol Tartrate (Lopressor) 12.5 mg PO BIDMEALS [facility] Last Admin: 02/26/17 08:51 Dose: 12.5 mg Nitroglycerin (Nitro-Bid 2%) 0.5 gm TOP ONETIME ONE Stop: 02/25/17 12:35 Last Admin: 02/25/17 13:02 Dose: Not Given Prednisone (Prednisone) 5 mg PO Q48H [facility] Last Admin: 02/25/17 17:38 Dose: 5 mg Vancomycin HCl (Pharmacy To Dose - Vancomycin) 1 dose .XX ASDIRECTED [facility] - Exam General: Obtunded HEENT: Mucous Membr. Moist/[place] Neck: Supple Lungs: Normal Respiratory Effort, Other (course breath sounds) GI/Abdominal Exam: Normal Bowel Sounds, No Distention. No: Guarding Extremities: Non-Tender, No Pedal Edema Skin: Warm, Dry, Intact - Problem List Review Problem List Initiated/Reviewed/Updated: Yes - My Orders Last 24 Hours: My Active Orders 02/28/17 15:30 VANCOMYCIN TROUGH [CHEM] Routine - Plan Plan:: This 87 year old male admitted with severe community acquired pneumonia with delerium. Patient's mentation has worsened since admission and family at bedside is requesting to switch to comfort measures only and to stop the antibiotics. We will consult hospice. Pending on patient status he may go to [place] on comfort measures when bed available.
[2017-02-26] MEDS: ClonazePAM 0.5 MG Tab PO SCH (21:51)
--- NOTE | 2017-02-27 09:45 | PCM.PN ---
- Review of Systems Systems Review Comment:: nonverbal - Patient Data Vitals - Most Recent: Last Vital Signs Temp 36.8 C 02/26/17 20:00 Pulse 80 02/26/17 20:00 Resp 22 H 02/26/17 20:00 BP 131/55 L 02/26/17 20:00 Pulse Ox 94 L 02/26/17 20:00 Weight - Most Recent: 54 kg I&O - Last 24 Hours: Intake & Output 02/26/17 02/27/17 02/27/17 22:59 06:59 14:59 Intake Total 25 10 Output Total 450 350 Balance -425 -340 Med Orders - Current: Current Medications Acetaminophen (Tylenol) 650 mg RECTAL Q4H PRN PRN Reason: Pain (mild 1-3) Albuterol/Ipratropium (Duoneb 3.0-0.5 Mg/3 Ml) 3 ml NEB Q4HRRT PRN PRN Reason: sob/wheezing Atropine Sulfate (Atropine 1% Ophth Soln) 0.5 ml SL Q2H PRN PRN Reason: secretions Last Admin: 02/26/17 05:58 Dose: 0.5 ml Clonazepam (Klonopin) 0.5 mg PO BEDTIME [facility] Last Admin: 02/26/17 21:51 Dose: 0.5 mg Donepezil HCl (Aricept) 15 mg PO BID [facility] Last Admin: 02/26/17 21:50 Dose: 15 mg Donepezil HCl (Aricept) 5 mg PO Q72H PRN PRN Reason: INCREASE IN MYCLONUS Memantine (Namenda) 5 mg PO BID [facility] Last Admin: 02/26/17 21:51 Dose: 5 mg Morphine Sulfate (Morphine) 2 mg IVPUSH Q2H PRN PRN Reason: Pain (severe 7-10) Sertraline HCl (Zoloft) 50 mg PO DAILY [facility] Last Admin: 02/26/17 08:51 Dose: 50 mg Discontinued Medications Albuterol/Ipratropium (Duoneb 3.0-0.5 Mg/3 Ml) 3 ml NEB ONETIME ONE Stop: 02/25/17 12:34 Last Admin: 02/25/17 12:39 Dose: 3 ml Apixaban (Eliquis) 5 mg PO Q12H [facility] Last Admin: 02/26/17 04:00 Dose: 5 mg Aspirin (Aspirin) 324 mg PO ONETIME ONE Stop: 02/25/17 12:35 Last Admin: 02/25/17 13:07 Dose: Not Given Al Hydroxide/Mg Hydroxide 15 ml/ Metoclopramide HCl 5 mg/Lidocaine HCl 5 ml 0 ml PO ONETIME ONE Stop: 02/25/17 12:35 Last Admin: 02/25/17 13:02 Dose: Not Given Famotidine (Pepcid) 20 mg IVPUSH ONETIME ONE Stop: 02/25/17 12:35 Last Admin: 02/25/17 13:08 Dose: 20 mg Levofloxacin/Dextrose 750 mg/ (Premix) 150 mls @ 100 mls/hr IV ONETIME ONE Stop: 02/25/17 16:16 Last Admin: 02/25/17 15:13 Dose: 100 mls/hr Levofloxacin/Dextrose 750 mg/ (Premix) 150 mls @ 100 mls/hr IV Q48H [facility] Piperacillin Sod/Tazobactam (Sod 3.375 gm/ Sodium Chloride) 50 mls @ 50 mls/hr IV Q6H [facility] Last Admin: 02/26/17 09:56 Dose: 50 mls/hr Sodium Chloride (Normal Saline) 1,000 mls @ 100 mls/hr IV ASDIRECTED [facility] Last Admin: 02/26/17 05:53 Dose: 100 mls/hr Vancomycin HCl 1 gm/ Sodium (Chloride) 250 mls @ 166.667 mls/hr IV Q24H [facility] Last Admin: 02/25/17 17:42 Dose: 166.667 mls/hr Ketorolac Tromethamine (Toradol) 30 mg IVPUSH ONETIME ONE Stop: 02/25/17 12:35 Last Admin: 02/25/17 13:16 Dose: Not Given Metoprolol Tartrate (Lopressor) 12.5 mg PO BIDMEALS [facility] Last Admin: 02/26/17 08:51 Dose: 12.5 mg Nitroglycerin (Nitro-Bid 2%) 0.5 gm TOP ONETIME ONE Stop: 02/25/17 12:35 Last Admin: 02/25/17 13:02 Dose: Not Given Prednisone (Prednisone) 5 mg PO Q48H [facility] Last Admin: 02/25/17 17:38 Dose: 5 mg Vancomycin HCl (Pharmacy To Dose - Vancomycin) 1 dose .XX ASDIRECTED [facility] - Exam General: Lethargic, Other (appears to be resting comfortably) Neck: Supple. No: JVD Lungs: Normal Respiratory Effort, Decreased Breath Sounds Cardiovascular: Regular Rate, Regular Rhythm GI/Abdominal Exam: Soft, Non-Tender, No Distention Extremities: No Pedal Edema Skin: Warm, Dry, Intact - Problem List Review Problem List Initiated/Reviewed/Updated: Yes - My Orders Last 24 Hours: My Active Orders 02/28/17 15:30 VANCOMYCIN TROUGH [CHEM] Routine 02/26/17 12:09 Consult to Hospice [CONS] Routine - Plan Plan:: This 87 year old male admitted with severe community acquired pneumonia with delerium. We will continue comfort measures. Hospice consulted. Plan on discharge to [place] when bed available.
[2017-02-27] MEDS: Sertraline 50 MG Tab PO SCH (09:58)
[2017-02-27] MEDS: Donepezil 5 MG Tab PO SCH ×2 (09:59→20:34)
[2017-02-27] MEDS: Memantine 10 MG Tab PO SCH ×2 (10:00→20:34)
[2017-02-27] MEDS: Atropine 1% Ophth Soln 5 ML BOTTLE SL PRN ×2 (10:24→20:51)
[2017-02-27] MEDS ORDERED: Levofloxacin/Dextrose 5%-Water 750 MG in Premix Bag 1 BAG IV SCH (14:30)
[2017-02-27] MEDS: ClonazePAM 0.5 MG Tab PO SCH (20:35)
[2017-02-28] MEDS: Donepezil 5 MG Tab PO SCH ×3 (10:00→22:30)
[2017-02-28] MEDS: Memantine 10 MG Tab PO SCH ×3 (10:43→22:31)
[2017-02-28] MEDS: Sertraline 50 MG Tab PO SCH (10:43)
--- NOTE | 2017-02-28 14:35 | PCM.PN ---
- Review of Systems Systems Review Comment:: myclonus controlled, resting comfortable, nonverbal - Patient Data Vitals - Most Recent: Last Vital Signs Temp 38.9 C H 02/28/17 08:16 Pulse 116 H 02/28/17 08:16 Resp 22 H 02/28/17 08:16 BP 169/69 H 02/28/17 08:16 Pulse Ox 98 02/28/17 08:16 Weight - Most Recent: 54 kg I&O - Last 24 Hours: Intake & Output 02/27/17 02/28/17 02/28/17 22:59 06:59 14:59 Intake Total 240 10 Output Total 320 100 Balance -80 -90 Med Orders - Current: Current Medications Acetaminophen (Tylenol) 650 mg RECTAL Q4H PRN PRN Reason: Pain (mild 1-3) Last Admin: 02/28/17 07:58 Dose: 650 mg Albuterol/Ipratropium (Duoneb 3.0-0.5 Mg/3 Ml) 3 ml NEB Q4HRRT PRN PRN Reason: sob/wheezing Atropine Sulfate (Atropine 1% Oph Soln) 0.5 ml SL Q2H PRN PRN Reason: secretions Last Admin: 02/27/17 20:51 Dose: 0.5 ml Clonazepam (Klonopin) 0.5 mg PO BEDTIME [facility] Last Admin: 02/27/17 20:35 Dose: 0.5 mg Donepezil HCl (Aricept) 15 mg PO BID [facility] Last Admin: 02/27/17 20:34 Dose: 15 mg Donepezil HCl (Aricept) 5 mg PO Q72H PRN PRN Reason: INCREASE IN MYCLONUS Last Admin: 02/27/17 15:29 Dose: 5 mg Memantine (Namenda) 5 mg PO BID [facility] Last Admin: 02/27/17 20:34 Dose: 5 mg Morphine Sulfate (Morphine) 2 mg IVPUSH Q2H PRN PRN Reason: Pain (severe 7-10) Sertraline HCl (Zoloft) 50 mg PO DAILY [facility] Last Admin: 02/27/17 09:58 Dose: 50 mg Discontinued Medications Albuterol/Ipratropium (Duoneb 3.0-0.5 Mg/3 Ml) 3 ml NEB ONETIME ONE Stop: 02/25/17 12:34 Last Admin: 02/25/17 12:39 Dose: 3 ml Apixaban (Eliquis) 5 mg PO Q12H [facility] Last Admin: 02/26/17 04:00 Dose: 5 mg Aspirin (Aspirin) 324 mg PO ONETIME ONE Stop: 02/25/17 12:35 Last Admin: 02/25/17 13:07 Dose: Not Given Al Hydroxide/Mg Hydroxide 15 ml/ Metoclopramide HCl 5 mg/Lidocaine HCl 5 ml 0 ml PO ONETIME ONE Stop: 02/25/17 12:35 Last Admin: 02/25/17 13:02 Dose: Not Given Famotidine (Pepcid) 20 mg IVPUSH ONETIME ONE Stop: 02/25/17 12:35 Last Admin: 02/25/17 13:08 Dose: 20 mg Levofloxacin/Dextrose 750 mg/ (Premix) 150 mls @ 100 mls/hr IV ONETIME ONE Stop: 02/25/17 16:16 Last Admin: 02/25/17 15:13 Dose: 100 mls/hr Levofloxacin/Dextrose 750 mg/ (Premix) 150 mls @ 100 mls/hr IV Q48H [facility] Piperacillin Sod/Tazobactam (Sod 3.375 gm/ Sodium Chloride) 50 mls @ 50 mls/hr IV Q6H [facility] Last Admin: 02/26/17 09:56 Dose: 50 mls/hr Sodium Chloride (Normal Saline) 1,000 mls @ 100 mls/hr IV ASDIRECTED [facility] Last Admin: 02/26/17 05:53 Dose: 100 mls/hr Vancomycin HCl 1 gm/ Sodium (Chloride) 250 mls @ 166.667 mls/hr IV Q24H [facility] Last Admin: 02/25/17 17:42 Dose: 166.667 mls/hr Ketorolac Tromethamine (Toradol) 30 mg IVPUSH ONETIME ONE Stop: 02/25/17 12:35 Last Admin: 02/25/17 13:16 Dose: Not Given Metoprolol Tartrate (Lopressor) 12.5 mg PO BIDMEALS [facility] Last Admin: 02/26/17 08:51 Dose: 12.5 mg Nitroglycerin (Nitro-Bid 2%) 0.5 gm TOP ONETIME ONE Stop: 02/25/17 12:35 Last Admin: 02/25/17 13:02 Dose: Not Given Prednisone (Prednisone) 5 mg PO Q48H [facility] Last Admin: 02/25/17 17:38 Dose: 5 mg Vancomycin HCl (Pharmacy To Dose - Vancomycin) 1 dose .XX ASDIRECTED [facility] - Exam General: Obtunded Lungs: Normal Respiratory Effort, Decreased Breath Sounds Cardiovascular: Regular Rate, Regular Rhythm GI/Abdominal Exam: Soft, Non-Tender Extremities: No Pedal Edema Skin: Warm, Dry, Intact - Problem List Review Problem List Initiated/Reviewed/Updated: Yes - Plan Plan:: This 87 year old male admitted with severe community acquired pneumonia with delirium. He is minimally responsive. We will continue comfort measures. Hospice consulted.
[2017-02-28] MEDS: Atropine 1% Ophth Soln 5 ML BOTTLE SL PRN (21:05)
[2017-02-28] MEDS: ClonazePAM 0.5 MG Tab PO SCH (21:05)
[2017-03-01] MEDS: Atropine 1% Ophth Soln 5 ML BOTTLE SL PRN ×4 (00:59→22:56)
--- NOTE | 2017-03-01 09:32 | PCM.PN ---
Addendum entered and electronically signed by Aubree Jones NP 03/01/17 13:54 : I spoke with Dr Brock, who has accepted patient for [facility] transfer upon discharge. Original Note: - General Info Date of Service: 03/01/17 Admission Dx/Problem (Free Text): Pneumonia Subjective Update: Obtunded. Family at bedside, including and two daughters. Discussed transfer to [facility] versus going home with Hospice. I encouraged them speaking with Hospice before making decision to go home. Going home included continued 24 hour care with supplemented care from Hospice. They will discuss this with Hospice and fill out paperwork for [facility]. - Patient Data Vitals - Most Recent: Last Vital Signs Temp 99.5 F 03/01/17 09:00 Pulse 82 03/01/17 09:00 Resp 18 03/01/17 09:00 BP 137/82 03/01/17 09:00 Pulse Ox 90 L 03/01/17 09:00 Weight - Most Recent: 54 kg I&O - Last 24 Hours: Intake & Output 02/28/17 03/01/17 03/01/17 22:59 06:59 14:59 Intake Total 0 0 Output Total 525 150 Balance -525 -150 Med Orders - Current: Current Medications Acetaminophen (Tylenol) 650 mg RECTAL Q4H PRN PRN Reason: Pain (mild 1-3) Last Admin: 02/28/17 07:58 Dose: 650 mg Albuterol/Ipratropium (Duoneb 3.0-0.5 Mg/3 Ml) 3 ml NEB Q4HRRT PRN PRN Reason: sob/wheezing Atropine Sulfate (Atropine 1% Oph Soln) 0.5 ml SL Q2H PRN PRN Reason: secretions Last Admin: 03/01/17 00:59 Dose: 0.5 ml Clonazepam (Klonopin) 0.5 mg PO BEDTIME [facility] Last Admin: 02/28/17 21:05 Dose: Not Given Donepezil HCl (Aricept) 15 mg PO BID [facility] Last Admin: 02/28/17 22:30 Dose: 15 mg Donepezil HCl (Aricept) 5 mg PO Q72H PRN PRN Reason: INCREASE IN MYCLONUS Last Admin: 02/27/17 15:29 Dose: 5 mg Memantine (Namenda) 5 mg PO BID [facility] Last Admin: 02/28/17 22:31 Dose: 5 mg Morphine Sulfate (Morphine) 2 mg IVPUSH Q2H PRN PRN Reason: Pain (severe 7-10) Sertraline HCl (Zoloft) 50 mg PO DAILY [facility] Last Admin: 02/28/17 10:43 Dose: Not Given Discontinued Medications Albuterol/Ipratropium (Duoneb 3.0-0.5 Mg/3 Ml) 3 ml NEB ONETIME ONE Stop: 02/25/17 12:34 Last Admin: 02/25/17 12:39 Dose: 3 ml Apixaban (Eliquis) 5 mg PO Q12H [facility] Last Admin: 02/26/17 04:00 Dose: 5 mg Aspirin (Aspirin) 324 mg PO ONETIME ONE Stop: 02/25/17 12:35 Last Admin: 02/25/17 13:07 Dose: Not Given Al Hydroxide/Mg Hydroxide 15 ml/ Metoclopramide HCl 5 mg/Lidocaine HCl 5 ml 0 ml PO ONETIME ONE Stop: 02/25/17 12:35 Last Admin: 02/25/17 13:02 Dose: Not Given Famotidine (Pepcid) 20 mg IVPUSH ONETIME ONE Stop: 02/25/17 12:35 Last Admin: 02/25/17 13:08 Dose: 20 mg Levofloxacin/Dextrose 750 mg/ (Premix) 150 mls @ 100 mls/hr IV ONETIME ONE Stop: 02/25/17 16:16 Last Admin: 02/25/17 15:13 Dose: 100 mls/hr Levofloxacin/Dextrose 750 mg/ (Premix) 150 mls @ 100 mls/hr IV Q48H [facility] Piperacillin Sod/Tazobactam (Sod 3.375 gm/ Sodium Chloride) 50 mls @ 50 mls/hr IV Q6H [facility] Last Admin: 02/26/17 09:56 Dose: 50 mls/hr Sodium Chloride (Normal Saline) 1,000 mls @ 100 mls/hr IV ASDIRECTED [facility] Last Admin: 02/26/17 05:53 Dose: 100 mls/hr Vancomycin HCl 1 gm/ Sodium (Chloride) 250 mls @ 166.667 mls/hr IV Q24H [facility] Last Admin: 02/25/17 17:42 Dose: 166.667 mls/hr Ketorolac Tromethamine (Toradol) 30 mg IVPUSH ONETIME ONE Stop: 02/25/17 12:35 Last Admin: 02/25/17 13:16 Dose: Not Given Metoprolol Tartrate (Lopressor) 12.5 mg PO BIDMEALS [facility] Last Admin: 02/26/17 08:51 Dose: 12.5 mg Nitroglycerin (Nitro-Bid 2%) 0.5 gm TOP ONETIME ONE Stop: 02/25/17 12:35 Last Admin: 02/25/17 13:02 Dose: Not Given Prednisone (Prednisone) 5 mg PO Q48H [facility] Last Admin: 02/25/17 17:38 Dose: 5 mg Vancomycin HCl (Pharmacy To Dose - Vancomycin) 1 dose .XX ASDIRECTED [facility] - Exam General: Obtunded (opens eyes slightly, but is non verbal in response.) Lungs: Decreased Breath Sounds. No: Normal Respiratory Effort (labored breathing. ) Cardiovascular: Regular Rate, Regular Rhythm GI/Abdominal Exam: Normal Bowel Sounds, Soft, Non-Tender, No Organomegaly, No Distention, No Abnormal Bruit, No Mass, Pelvis Stable Extremities: Normal Inspection, Non-Tender, No Pedal Edema, Normal Capillary Refill Psy/Mental Status: No: Alert - Problem List & Annotations (1) CAP (community acquired pneumonia) SNOMED Code(s): 963206499 Code(s): J18.9 - PNEUMONIA, UNSPECIFIED ORGANISM Status: Acute Current Visit: Yes Qualifiers: Laterality: right Lung location: upper lobe of lung Qualified Code(s): J18.1 - Lobar pneumonia, unspecified organism (2) Altered mental status SNOMED Code(s): 871648757 Code(s): R41.82 - ALTERED MENTAL STATUS, UNSPECIFIED Status: Acute Current Visit: Yes Qualifiers: Altered mental status type: somnolence Qualified Code(s): R40.0 - Somnolence (3) Protein malnutrition SNOMED Code(s): 721876131 Code(s): E46 - UNSPECIFIED PROTEIN-CALORIE MALNUTRITION Status: Acute Current Visit: Yes (4) Myoclonus SNOMED Code(s): 43573967 Code(s): G25.3 - MYOCLONUS Status: Chronic Current Visit: Yes (5) Dementia SNOMED Code(s): 83256939 Code(s): F03.90 - UNSPECIFIED DEMENTIA WITHOUT BEHAVIORAL DISTURBANCE Status: Chronic Current Visit: Yes (6) Anticoagulant long-term use SNOMED Code(s): 558133296 Code(s): Z79.01 - HALFWAY (CURRENT) USE OF ANTICOAGULANTS Status: Chronic Current Visit: No (7) COPD (chronic obstructive pulmonary disease) SNOMED Code(s): 86541974 Code(s): J44.9 - CHRONIC OBSTRUCTIVE PULMONARY DISEASE, UNSPECIFIED Status : Chronic Current Visit: No Qualifiers: COPD type: emphysema Emphysema type: unspecified Qualified Code(s): J43.9 - Emphysema, unspecified (8) HTN (hypertension) SNOMED Code(s): 49661400 Code(s): I10 - ESSENTIAL (PRIMARY) HYPERTENSION Status: Chronic Current Visit: No Qualifiers: Hypertension type: essential hypertension Qualified Code(s): I10 - Essential (primary) hypertension (9) Atrial fibrillation SNOMED Code(s): 03257585 Code(s): I48.91 - UNSPECIFIED ATRIAL FIBRILLATION Status: Chronic Current Visit: Yes Qualifiers: Atrial fibrillation type: paroxysmal Qualified Code(s): I48.0 - Paroxysmal atrial fibrillation (10) Lung mass SNOMED Code(s): 863598683 Code(s): R91.8 - OTHER NONSPECIFIC ABNORMAL FINDING OF LUNG FIELD Status: Chronic Current Visit: Yes (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 Continues to be minimally responsive. Continue palliative care with comfort measures. Hospice consulted and will visit with family today. They discussed possibly bringing him home, but are undecided. They will fill out [facility] paperwork today. Transfer to [facility] at earliest tomorrow if this is what family decides. Myoclonus controlled, did miss yesterday morning dose and family noticed worsening, but was given evening dose and felt this helped a lot. Would like him to continue to have Aricept ordered and given when he is more alert and able to take medications. Atropine and Morphine available PRN and family is aware and encouraged to use Morphine due to labored breathing/pain
[2017-03-01] MEDS: Sertraline 50 MG Tab PO SCH (09:36)
[2017-03-01] MEDS: Memantine 10 MG Tab PO SCH ×2 (09:37→20:57)
[2017-03-01] MEDS: Donepezil 5 MG Tab PO SCH ×2 (09:37→20:57)
[2017-03-01] MEDS: Morphine 2 MG/ML Syringe IVPUSH PRN ×2 (11:35→15:33)
[2017-03-01] MEDS ORDERED: LORazepam Conc Solution 2 MG/ML 30 ML Bottle SL PRN (15:56)
[2017-03-01] MEDS: Morphine Oral Concentrate 20 MG/ML 30 ML Bottle SL PRN ×5 (16:42→22:51)
[2017-03-01] MEDS: ClonazePAM 0.5 MG Tab PO SCH (20:57)
[2017-03-02] MEDS: Morphine Oral Concentrate 20 MG/ML 30 ML Bottle SL PRN ×7 (00:21→08:21)
[2017-03-02] MEDS: Atropine 1% Ophth Soln 5 ML BOTTLE SL PRN ×3 (01:43→07:06)
[2017-03-02] MEDS ORDERED: Atropine 1% Ophth Soln 5 ML BOTTLE SL PRN (08:56)
[2017-03-02 09:08] VITALS: BP 74/45
--- NOTE | 2017-03-02 10:14 | PCM.DCSUM1 ---
Discharge Summary - Hospital Course Brief History: This 87 year old male with pmh of HTN, myclonus, dementia, and R upper lobe density presented to the ED via EMS with and daughter. He is unresponsive or minimally responsive to questioning. Nick was discharged in August 2016 after having pneumonia and finding a R upper lobe density, which he declined wanting anything further regrding treatment or evaluation for. He was discharged home with Home health with consideration of Hospice. He was doing well until [place], per family report. Since then he has slowly declined in strength and wakefulness. Most recently, he has been nearly unresponsive and unable to assist in transfers to chair. The daughter reports he ate peaches and grilled cheese yesterday afternoon for lunch, but reports a drastic change in alertness since then. She denies him coughing while eating or choking. He has been eating and drinking very little recently. In the ED mild leukocytosis noted, 12,710 Hgb 12.8, lactate 1.5, BUN 22 Cr 1.3 and UA negative. CXR revealed , "stable abnormal chest findings from 01/19/2017. Persistent right suprahilar and paratracheal fullness, consider underlying mass, lymphadenopathy, or partial right upper lobe collapse". He was treated with Levaquin for PNA. Dr. Rodríguez spoke with family, who request palliative treatment for community acquired pneumonia. They would like to try antibiotics for a couple days and if no progress is noticed, they would then transfer care to Hospice and transfer to [facility]. This again was reviewed with and daughter and they continue to agree with this plan. They are ok with antibiotics and IVFs, but would not want anything further interventions such as pressors or mechanical ventilation or endotracheal intubation. He was admitted inpatient for AMS and CAP. PCP, Dr Braxton. - Discharge Data Discharge Date: 03/02/17 Discharge Disposition: 20 Preliminary Cause of *Q: Other_Special Instruction (Pneumonia, sepsis, respiratory failure) Condition: - Discharge Diagnosis/Problem(s) (1) CAP (community acquired pneumonia) SNOMED Code(s): 054291531 ICD Code: J18.9 - PNEUMONIA, UNSPECIFIED ORGANISM Status: Acute Qualifiers: Laterality: right Lung location: upper lobe of lung Qualified Code(s): J18.1 - Lobar pneumonia, unspecified organism (2) Altered mental status SNOMED Code(s): 575862808 ICD Code: R41.82 - ALTERED MENTAL STATUS, UNSPECIFIED Status: Acute Qualifiers: Altered mental status type: delirium Qualified Code(s): R41.0 - Disorientation, unspecified (3) Protein malnutrition SNOMED Code(s): 061191829 ICD Code: E46 - UNSPECIFIED PROTEIN-CALORIE MALNUTRITION Status: Acute (4) Myoclonus SNOMED Code(s): 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 Code: G25.3 - MYOCLONUS Status: Chronic (5) Dementia SNOMED Code(s): 52250247 ICD Code: F03.90 - UNSPECIFIED DEMENTIA WITHOUT BEHAVIORAL DISTURBANCE Status: Chronic (6) Anticoagulant long-term use SNOMED Code(s): 974551930 ICD Code: Z79.01 - SNF (CURRENT) USE OF ANTICOAGULANTS Status: Chronic (7) COPD (chronic obstructive pulmonary disease) SNOMED Code(s): 44205693 ICD Code: J44.9 - CHRONIC OBSTRUCTIVE PULMONARY DISEASE, UNSPECIFIED Status : Chronic Qualifiers: COPD type: emphysema Emphysema type: unspecified Qualified Code(s): J43.9 - Emphysema, unspecified (8) HTN (hypertension) SNOMED Code(s): 16263601 ICD Code: I10 - ESSENTIAL (PRIMARY) HYPERTENSION Status: Chronic Qualifiers: Hypertension type: essential hypertension Qualified Code(s): I10 - Essential (primary) hypertension (9) Atrial fibrillation SNOMED Code(s): 49654475 ICD Code: I48.91 - UNSPECIFIED ATRIAL FIBRILLATION Status: Chronic Qualifiers: Atrial fibrillation type: paroxysmal Qualified Code(s): I48.0 - Paroxysmal atrial fibrillation (10) Lung mass SNOMED Code(s): 262298762 ICD Code: R91.8 - OTHER NONSPECIFIC ABNORMAL FINDING OF LUNG FIELD Status: Chronic (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 SNOMED Code(s): 98897858 ICD Code: WMV4390 - Status: Chronic - Patient Summary/Data Consults: Consultations 02/26/17 12:09 Consult to Hospice [CONS] Routine - Discharge Plan Home Medications: Home Meds Apixaban [Eliquis] 5 mg PO Q12H 02/25/17 [History] Budesonide [Pulmicort] 0.5 mg IH BID 02/25/17 [History] ClonazePAM [KlonoPIN] 0.5 mg PO BEDTIME 12/29/17 [History] Donepezil [Aricept] 15 mg PO BID 02/25/17 [History] Ipratropium/Albuterol Sulfate [Iprat-Albut 0.5-3(2.5) MG/3 ML] 3 ml IH TID 02/25 [History] Memantine HCl 5 mg PO BID 02/25/17 [History] Metoprolol Tartrate [Metoprolol Tartrate] 12.5 mg PO BID 02/25/17 [History] Prednisone [IJD: Prednisone] 5 mg PO ASDIRECTED 02/25/17 [History] Sertraline HCl [Sertraline HCl] 1 tab PO DAILY 02/25/17 [History] Forms: ED Department Discharge - Discharge Summary/Plan Comment DC Time >30 min.: No Discharge Summary/Plan Comment: Admission Diagnoses: Severe Community acquire pneumonia Possible Aspiration pneumonia Palliative care AMS Protein malnutrition Myoclonus Dementia intermediate card tender anticoagulant use Afib COPD HTN 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 Decision was made by family to completely stop treatment and place on full palliative care with Hospice. Nick remained unresponsive with intermittent alertfullness. yesterday he started having more labored breathing and Morphine wsa initiated with good relief. Family was preparing for transfer for [facility] in the am. Patient was noted to have no heartbeat or respirations today at 0855, which is time of . Family, and 2 daughters at bedside during this time. Security Operations Specialist Vitor Hood at bedside as well. Family had no further questions or concerns. Dr. Braxton, patient PCP made aware and visited with family. - Patient Data Vitals - Most Recent: Last Vital Signs Temp 100.5 F 03/02/17 08:00 Pulse 105 H 03/02/17 08:00 Resp 14 03/02/17 08:00 BP 74/45 L 03/02/17 08:00 Pulse Ox 87 L 03/02/17 08:00 Weight - Most Recent: 54 kg I&O - Last 24 hours: Intake & Output 03/01/17 03/02/17 03/02/17 22:59 06:59 14:59 Intake Total 25 0 Output Total 225 25 Balance -200 -25 Med Orders - Current: Current Medications Acetaminophen (Tylenol) 650 mg RECTAL Q4H PRN PRN Reason: Pain (mild 1-3) Last Admin: 02/28/17 07:58 Dose: 650 mg Albuterol/Ipratropium (Duoneb 3.0-0.5 Mg/3 Ml) 3 ml NEB Q4HRRT PRN PRN Reason: sob/wheezing Atropine Sulfate (Atropine 1% Ophth Soln) 0.5 ml SL Q1H PRN PRN Reason: secretions Clonazepam (Klonopin) 0.5 mg PO BEDTIME [facility] Last Admin: 03/01/17 20:57 Dose: Not Given Donepezil HCl (Aricept) 15 mg PO BID [facility] Last Admin: 03/01/17 20:57 Dose: Not Given Donepezil HCl (Aricept) 5 mg PO Q72H PRN PRN Reason: INCREASE IN MYCLONUS Last Admin: 02/27/17 15:29 Dose: 5 mg Lorazepam (Ativan) 1 mg SL Q4H PRN PRN Reason: agitation, muscle jerking Memantine (Namenda) 5 mg PO BID [facility] Last Admin: 03/01/17 20:57 Dose: Not Given Morphine Sulfate (Morphine 20 Mg/Ml Soln) 5 - 10 mg SL Q1H PRN PRN Reason: pain/SOB Last Admin: 03/02/17 08:21 Dose: 10 mg Sertraline HCl (Zoloft) 50 mg PO DAILY [facility] Last Admin: 03/01/17 09:36 Dose: 50 mg Discontinued Medications Albuterol/Ipratropium (Duoneb 3.0-0.5 Mg/3 Ml) 3 ml NEB ONETIME ONE Stop: 02/25/17 12:34 Last Admin: 02/25/17 12:39 Dose: 3 ml Apixaban (Eliquis) 5 mg PO Q12H [facility] Last Admin: 02/26/17 04:00 Dose: 5 mg Aspirin (Aspirin) 324 mg PO ONETIME ONE Stop: 02/25/17 12:35 Last Admin: 02/25/17 13:07 Dose: Not Given Atropine Sulfate (Atropine 1% Ophth Soln) 0.5 ml SL Q2H PRN PRN Reason: secretions Last Admin: 03/02/17 07:06 Dose: 0.5 ml Al Hydroxide/Mg Hydroxide 15 ml/ Metoclopramide HCl 5 mg/Lidocaine HCl 5 ml 0 ml PO ONETIME ONE Stop: 02/25/17 12:35 Last Admin: 02/25/17 13:02 Dose: Not Given Famotidine (Pepcid) 20 mg IVPUSH ONETIME ONE Stop: 02/25/17 12:35 Last Admin: 02/25/17 13:08 Dose: 20 mg Levofloxacin/Dextrose 750 mg/ (Premix) 150 mls @ 100 mls/hr IV ONETIME ONE Stop: 02/25/17 16:16 Last Admin: 02/25/17 15:13 Dose: 100 mls/hr Levofloxacin/Dextrose 750 mg/ (Premix) 150 mls @ 100 mls/hr IV Q48H [facility] Piperacillin Sod/Tazobactam (Sod 3.375 gm/ Sodium Chloride) 50 mls @ 50 mls/hr IV Q6H [facility] Last Admin: 02/26/17 09:56 Dose: 50 mls/hr Sodium Chloride (Normal Saline) 1,000 mls @ 100 mls/hr IV ASDIRECTED [facility] Last Admin: 02/26/17 05:53 Dose: 100 mls/hr Vancomycin HCl 1 gm/ Sodium (Chloride) 250 mls @ 166.667 mls/hr IV Q24H [facility] Last Admin: 02/25/17 17:42 Dose: 166.667 mls/hr Ketorolac Tromethamine (Toradol) 30 mg IVPUSH ONETIME ONE Stop: 02/25/17 12:35 Last Admin: 02/25/17 13:16 Dose: Not Given Metoprolol Tartrate (Lopressor) 12.5 mg PO BIDMEALS [facility] Last Admin: 02/26/17 08:51 Dose: 12.5 mg Morphine Sulfate (Morphine) 2 mg IVPUSH Q2H PRN PRN Reason: Pain (severe 7-10) Last Admin: 03/01/17 11:35 Dose: 2 mg Nitroglycerin (Nitro-Bid 2%) 0.5 gm TOP ONETIME ONE Stop: 02/25/17 12:35 Last Admin: 02/25/17 13:02 Dose: Not Given Prednisone (Prednisone) 5 mg PO Q48H [facility] Last Admin: 02/25/17 17:38 Dose: 5 mg Vancomycin HCl (Pharmacy To Dose - Vancomycin) 1 dose .XX ASDIRECTED [facility] *Q Meaningful Use (DIS) - VTE *Q VTE Criteria *Q: - Stroke *Q Stroke Criteria *Q: - AMI *Q AMI Criteria *Q:
[2017-03-02] MEDS: Donepezil 5 MG Tab PO SCH (11:18)
[2017-03-02] MEDS: Memantine 10 MG Tab PO SCH (11:19)
[2017-03-02] MEDS: Sertraline 50 MG Tab PO SCH (11:19)
== END 2017-03-02 10:40 | disposition expired | DRG 193 ==
LOC: MW.ED 12:19 → MW.MS 14:50
PROVIDERS: ADMIT Internal Medicine; ATTEND Internal Medicine
DX: J18.9 Pneumonia, unspecified organism (principal); R41.82 Altered mental status, unspecified; J96.90 Respiratory failure, unspecified, unspecified whether with hypoxia or hypercapnia; I49.9 Cardiac arrhythmia, unspecified; E46 Unspecified protein-calorie malnutrition; J44.9 Chronic obstructive pulmonary disease, unspecified; C34.11 Malignant neoplasm of upper lobe, right bronchus or lung; J69.0 Pneumonitis due to inhalation of food and vomit; R41.0 Disorientation, unspecified; I10 Essential (primary) hypertension; G25.3 Myoclonus; F03.90 Unspecified dementia, unspecified severity, without behavioral disturbance, psychotic disturbance, mood disturbance, and anxiety; J43.9 Emphysema, unspecified; I48.0 Paroxysmal atrial fibrillation; Z79.52 Long term (current) use of systemic steroids; Z79.01 Long term (current) use of anticoagulants; Z79.899 Other long term (current) drug therapy; Z51.5 Encounter for palliative care; Z95.0 Presence of cardiac pacemaker; H54.8 Legal blindness, as defined in USA; Z99.81 Dependence on supplemental oxygen
CPT/HCPCS: 36415; 71010; 71010-26; 80048; 80053; 81001; 82150; 82553; 83605; 83690; 84484; 85025; 85610; 87040; 93005; 94640; 96374; 96375; 99283; 99285-25; A9270-GY; J1956; J2270; J2543; J3370; J7040; J7050